=== PATIENT | female | born 1965 | race Caucasian/White ===

== ENCOUNTER 2022-03-30 17:32 | Inpatient (IN) ==
[2022-03-30] MEDS ORDERED: SODIUM CHLORIDE 0.9% 1000ML 1,000 ML IV ONE (17:42)
[2022-03-30] MEDS ORDERED: ONDANSETRON INJ 2 MG/ML 2 ML VIAL IV STA (17:43)
--- NOTE | 2022-03-30 17:46 | Emergency Department Note ---
Impression & Plan Pulmonary embolism, Hypoxia, Syncope ED Provider Note NAME: EMANUEL MCKENNA AGE: 56 SEX: F : 1965 ARRIVES VIA: Ambulance INFORMANT: Patient ED PROVIDER(S): Marc Peter DO CHIEF COMPLAINT: syncope HPI: Patient is a 57-year-old female with past medical history of ovarian cancer who is receiving chemo who received 5 days worth of chemo this past week. She has been sick since with nausea and vomiting. Today she felt very hot flushed nauseated and passed out. She did this while sitting. She was passed out for about 5 minutes. She woke up she was not confused. She knew where she was. There is no seizure activity. She denies any headache or change in v ision. No chest pain or shortness of breath preceding or following this incident. She does admit to upset stomach and persistent vomiting. No dysuria, urgency, or frequency. No other exacerbating or remitting factors. PAST MEDICAL HISTORY:See Below PAST SURGICAL HISTORY:See Below FAMILY HISTORY:See Below SOCIAL HISTORY:See Below HOME MEDICATIONS:See Below ALLERGIES:See Below VITALS:See Below PHYSICAL EXAMINATION: GENERAL: Sitting up in bed, alert, well appearing, well nourished, no distress, non-toxic EYE EXAM: normal conjunctiva. PERRL and EOM's grossly intact. OROPHARYNX: no exudate, no erythema, lips, buccal mucosa, and tongue normal and mucous membranes are moist NECK: supple, no nuchal rigidity, no adenopathy, non-tender LUNGS: Clear to auscultation. Normal chest wall mechanics HEART: tachycardia, S1 normal and S2 normal ABDOMEN: abdomen soft, non-tender, normo-active bowel sounds, no masses, no rebound or guarding. UPPER EXTREMITIES: upper extremities are grossly normal. LOWER EXTREMITIES: No pitting edema. Calves are equal bilateral NEURO EXAM: Normal sensorium, cranial nerves II-XII grossly intact, normal speech, no gross weakness of arms, no gross weakness of legs. MEDICAL DECISION MAKING: Patient is a 56-year-old female with ovarian cancer receiving chemo who presents the ER for syncopal episode. She was found to be hypoxic. She is placed on 2 L nasal cannula. She tachycardic with heart rate in 130s. IV was established blood work was obtained. Labs show no significant leukocytosis. Mild anemia 10. BMP was unremarkable. Glucose was slightly elevated. LFTs bilirubin was unremarkable. Troponin and lipase was normal. CT angio of the chest shows multiple bilateral PEs. Patient denies any bleeding risk factors. She was updated bedside. She was placed on a heparin drip and bolus. She will be admitted to the [facility] as I discussed with Dr. Landry in regards to presentation work-up and further treatment Triage Nursing notes reviewed. Limited review of prior medical records performed Vital Signs: reviewed and remarkable for no significant abnormalities Differential diagnosis: Differential diagnosis includes etiologies such as vasovagal event, infection, hypoglycemia, electrolyte abnormalities, cardiac sources, intracerebral event, toxicologic, neurologic, as well as others were entertained. ER treatment provided: See below Diagnostics interpreted by me include EKG and cardiac monitoring as listed below: -Cardiac Monitoring: An order was placed for continuous cardiac monitoring. The monitor shows a rate of 120 with sinus rhythm. -ECG: Sinus tachycardia rate of 114 Left axis No PVCs QTC 476 -Laboratory studies:Interpreted by me as stated above in MDM and shown below. Imaging studies: Xrays: As interpreted by me: Portable AP upright 1 view the chest unremarkable for any focal infiltrate per my CTs show: CT angio of the chest shows bilateral PEs per my read Consultation(s): Discussed with Dr. Landry in regards to presentation work-up and treatment Procedures:none Critical Care: I have personally spent 31 minutes of critical care time in the direct management of this patient. This includes bedside care, interpretation of diagnostic studies, and testing, discussion with consultants, patient, and family members, and other required patient management activities. This 31 minutes is in excess of all separately billable procedures. Past Med/Surg History Social History Smoking Status: Never smoker Feels Safe at Home: Yes Allergies Allergies Allergy/AdvReac Type Severity Reaction Status Date / Time No Known Allergies Allergy Mild Verified 03/30/22 20:32 Home Meds Home Medications Medication Instructions Recorded Confirmed levothyroxine 88 mcg tablet 88 mcg PO DAILYBB 03/30/22 03/30/22 olanzapine 5 mg tablet 10 mg PO QPM 03/30/22 03/30/22 omeprazole 20 mg capsule,delayed 20 mg PO QPM 03/30/22 03/30/22 release ondansetron HCl 8 mg tablet 8 mg PO Q8H PRN Nausea 02/04/23 02/04/23 Results & Data (ED) Vital Signs Vital Signs - 24 hr 03/30/22 17:21 03/30/22 18:14 03/30/22 18:18 Temperature 37.3 C Temperature Source Oral Pulse Rate 116 H Pulse Rate [Left Apical] 95 H Pulse Rhythm Regular Pulse Strength Normal Respiratory Rate 20 20 Respiratory Effort / Characteristics Non-Labored Spontaneous Non-Labored Spontaneous Respiratory Depth Normal Normal Blood Pressure [Left Arm] 107/64 Blood Pressure Mean [Left Arm] 78 Pulse Oximetry 90 89 L 89 L Oxygen Delivery Method Room Air Room Air Room Air Oxygen Flow Rate Sepsis Recent Fever Within 48 Hours No Sepsis New/Unexplained Change in Mental Status No Sepsis Action Taken by Nursing No Action Required Oxygen Flow Rate - Titration 2 Pulse Oximetry Post Tiitration 92 03/30/22 17:43 03/30/22 19:00 Temperature Temperature Source Pulse Rate Pulse Rate [Left Apical] 91 H Pulse Rhythm Pulse Strength Respiratory Rate 16 Respiratory Effort / Characteristics Respiratory Depth Blood Pressure [Left Arm] 123/67 Blood Pressure Mean [Left Arm] 85 Pulse Oximetry 92 95 Oxygen Delivery Method Nasal Cannula Nasal Cannula Oxygen Flow Rate 2 2 Sepsis Recent Fever Within 48 Hours Sepsis New/Unexplained Change in Mental Status Sepsis Action Taken by Nursing Oxygen Flow Rate - Titration Pulse Oximetry Post Tiitration Laboratory Data 03/30/22 18:00 03/30/22 18:00 Lab Results 03/30/22 03/30/22 03/30/22 Range/Units 17:39 18:00 18:00 WBC 8.01 (4.8-10.8) K/ul RBC 3.71 L (4.20-5.40) M/uL Hgb 10.5 L (12.0-16.0) g/dl Hct 31.1 L (37.0-47.0) % MCV 83.8 (80.0-100.0) fL MCH 28.3 (25.0-34.0) pg MCHC 33.8 (32.0-36.0) g/dL RDW Std Deviation 64.0 H (36.4-46.3) fL RDW Coeff of Madhav 20.9 H (11.5-14.5) % Plt Count 180 (130-400) K/uL MPV 9.7 (9.4-12.4) fL Immature Gran % (Auto) 1.0 % Neut % (Auto) 77.8 % Lymph % (Auto) 20.3 % Swisher % (Auto) 0.6 % Eos % (Auto) 0.2 % Baso % (Auto) 0.1 % Neut # (Auto) 6.22 (1.40-6.50) K/uL Lymph # (Auto) 1.63 (1.2-3.4) K/uL Swisher # (Auto) 0.05 L (0.11-0.59) K/uL Eos # (Auto) 0.02 (0-0.50) K/uL Baso # (Auto) 0.01 (0-0.2) K/uL Immature Gran # (Auto) 0.08 (0.01-0.20) K/uL Anisocytosis Present Tear Drop Cells 1+ Sodium 134 L (136-145) mmol/L Potassium 3.6 (3.5-5.1) mmol/L Chloride 99 (98-107) mmol/L Carbon Dioxide 22 (21-32) mmol/L Anion Gap 13 H (3-11) BUN 28 H (6-23) mg/dl Creatinine 1.29 H (0.6-1.2) mg/dl Est Cr Clr Drug Dosing 50.7 ml/min Est GFR ( Amer) 53.6 ml/min Est GFR (Non-Af Amer) 46.3 ml/min BUN/Creatinine Ratio 21.7 H (10-20) Glucose 161 H (70-99(Fasting)) mg/dl POC Glucose 182 H (70-99) mg/dl Calcium 9.0 (8.5-10.1) mg/dl Total Bilirubin 0.6 (0.2-1.0) mg/dl AST 12 L (13-39) U/L ALT 12 (7-52) U/L Alkaline Phosphatase 60 (34-104) U/L Troponin I High Sens 6.5 (0-14) pg/ml Total Protein 7.1 (6.0-8.3) gm/dl Albumin 4.0 (3.4-5.0) gm/dl Globulin 3.1 (2.5-4.0) gm/dl Albumin/Globulin Ratio 1.3 (0.9-2) Lipase 39 (11-82) U/L Administered Medications Discontinued Medications Sodium Chloride (Nss 1000ml) 1,000 mls @ 999 mls/hr IV .Q1H1M ONE Stop: 03/30/22 18:42 Last Infusion: 03/30/22 19:16 Dose: 0 mls/hr Documented By: Admin: 03/30/22 18:13 Dose: 999 mls/hr Documented By: MARY Ioversol (Optiray 320 500ml) 119 ml IV ONCE ONE Stop: 03/30/22 19:29 Last Admin: 03/30/22 19:31 Dose: 119 ml Documented By: JUANITO Ondansetron HCl (Ondansetron Inj 2 Mg/Ml 2 Ml Vial) 4 mg IV NOW STA Stop: 03/30/22 17:44 Last Admin: 03/30/22 18:13 Dose: 4 mg Documented By: MARY Imaging Data Radiologist's Impression: Abdomen/Pelvis CT 03/30/22 17:42 CT angio chest PE protocol, CT abd pelvis IV con only CT DOSE: 891.51 mGy.cm HISTORY: 56 years-old Female with PE. Acute shortness of breath. Acute chest and abdominal pain with syncope. History of ovarian carcinoma with chemotherapy. TECHNIQUE: Multiple CTA images of the chest were obtained after the intravenous administration of [address] abdomen and pelvis with IV contrast was also obtained. Coronal and sagittal MIPS were obtained from the axial data set and were submitted for review. All measurements were obtained according to NASCET criteria. A dose lowering technique was utilized adhering to the principles of ALARA. COMPARISON: PET CT 10/15/2021, CT abdomen and pelvis 05/30/2011. FINDINGS: CTA: Mild cardiomegaly without pericardial effusion. Unremarkable thoracic aorta. Main, lobar, segmental and subsegmental pulmonary bladder with bilateral lungs. Mild straightening of the intraventricular septum. CT CHEST: Heterogeneous thyroid. No pathologically enlarged lymph nodes. No pneumothorax, pleural effusion, airspace consolidation or overt pulmonary edema. No pulmonary infarction identified or suspicious pulmonary nodules. Central airways are patent. Unremarkable soft tissues. No acute fracture or destructive bone lesion identified. 1.5 asymmetry of the upper outer quadrant left breast which demonstrated no significant metabolic activity on the comparison exam. CT ABDOMEN/PELVIS: No pneumatosis or pneumoperitoneum. Unremarkable spleen, pancreas, and adrenal glands. Punctate gallstone within the gallbladder fundus. Probable cyst of the left hepatic lobe measures 8 mm on image 22 series 5. Ill-defined 1.5 cm focus of slightly decreased attenuation within the left hepatic lobe on image 14 series 5 similar to the 2012 study suggestive of benign etiology. Patency of the hepatic and portal veins. Unremarkable kidneys. No hydronephrosis. 6 cm probable cyst of the interpolar right kidney. Decompressed urinary bladder with wall thickening. Hysterectomy. Surgical clips of the retroperitoneum and pelvis. Excision of the previously described large midline pelvic mass. Decreased size of the previously noted peritoneal nodules. 1.7 cm omental nodule on image 238 previously measured 2.6 c m. Moderate colonic fecal retention. Colonic diverticulosis. Normal appendix. No evidence of new or progressive disease. Unremarkable soft tissues. No acute fracture. IMPRESSION: 1. Extensive pulmonary emboli with findings suggestive of right heart strain. 2. No pleural effusion or pulmonary infarct. 3. No acute intra-abdominal or intrapelvic abnormality. 4. The previously noted large midline pelvic mass is no longer present. Additionally, there is marked improvement of the previously noted peritoneal/omental carcinomatosis. 5. Incidental findings as above. ACT 112: Negative or not required by law. The above report was generated using voice recognition software. It may contain grammatical, syntax or spelling errors. Electronically signed by: Marky Lester M.D. 03/30/2022 8:14 PM Chest X-Ray 03/30/22 17:43 XR chest 1V portable HISTORY: 56 years-old Female Chest pain, nonspecific acute chest pain COMPARISON: Acute abdominal series radiographs 11/19/2005 TECHNIQUE: AP view of the chest FINDINGS: Right IJ port catheter distal tip projects over the right atrium. No pneumothorax, pleural effusion, airspace consolidation or overt pulmonary edema. Bones of the chest appear grossly intact. IMPRESSION: No acute process. ACT 112: Negative or not required by law. The above report was generated using voice recognition software. It may contain grammatical, syntax or spelling errors. Electronically signed by: Marky Lester M.D. 03/30/2022 6:43 PM Chest CTA 03/30/22 18:23 CT angio chest PE protocol, CT abd pelvis IV con only CT DOSE: 891.51 mGy.cm HISTORY: 56 years-old Female with PE. Acute shortness of breath. Acute chest and abdominal pain with syncope. History of ovarian carcinoma with chemotherapy. TECHNIQUE: Multiple CTA images of the chest were obtained after the intravenous administration of [address] abdomen and pelvis with IV contrast was also obtained. Coronal and sagittal MIPS were obtained from the axial data set and were submitted for review. All measurements were obtained according to NASCET criteria. A dose lowering technique was utilized adhering to the principles of ALARA. COMPARISON: PET CT 10/15/2021, CT abdomen and pelvis 05/30/2011. FINDINGS: CTA: Mild cardiomegaly without pericardial effusion. Unremarkable thoracic aorta. Main, lobar, segmental and subsegmental pulmonary bladder with bilateral lungs. Mild straightening of the intraventricular septum. CT CHEST: Heterogeneous thyroid. No pathologically enlarged lymph nodes. No pneumothorax, pleural effusion, airspace consolidation or overt pulmonary edema. No pulmonary infarction identified or suspicious pulmonary nodules. Central airways are patent. Unremarkable soft tissues. No acute fracture or destructive bone lesion identified. 1.5 asymmetry of the upper outer quadrant left breast which dem onstrated no significant metabolic activity on the comparison exam. CT ABDOMEN/PELVIS: No pneumatosis or pneumoperitoneum. Unremarkable spleen, pancreas, and adrenal glands. Punctate gallstone within the gallbladder fundus. Probable cyst of the left hepatic lobe measures 8 mm on image 22 series 5. Ill-defined 1.5 cm focus of slightly decreased attenuation within the left hepatic lobe on image 14 series 5 similar to the 2012 study suggestive of benign etiology. Patency of the hepatic and portal veins. Unremarkable kidneys. No hydronephrosis. 6 cm probable cyst of the interpolar right kidney. Decompressed urinary bladder with wall thickening. Hysterectomy. Surgical clips of the retroperitoneum and pelvis. Excision of the previously described large midline pelvic mass. Decreased size of the previously noted peritoneal nodules. 1.7 cm omental nodule on image 238 previously measured 2.6 cm. Moderate colonic fecal retention. Colonic diverticulosis. Normal appendix. No evidence of new or progressive disease. Unremarkable soft tissues. No acute fracture. IMPRESSION: 1. Extensive pulmonary emboli with findings suggestive of right heart strain. 2. No pleural effusion or pulmonary infarct. 3. No acute intra-abdominal or intrapelvic abnormality. 4. The previously noted large midline pelvic mass is no longer present. Additionally, there is marked improvement of the previously noted peritoneal/omental carcinomatosis. 5. Incidental findings as above. ACT 112: Negative or not required by law. The above report was generated using voice recognition software. It may contain grammatical, syntax or spelling errors. Electronically signed by: Marky Lester M.D. 03/30/2022 8:14 PM Discharge Plan Visit Data Chief Complaint: Syncope Stated Complaint: SYNCOPE, DIZZINESS ED Provider: Marc Peter Discharge Problem: Pulmonary embolism, Hypoxia, Syncope Forms Stand Alone Forms: [facility] Prescriptions Prescriptions: No Action ondansetron HCl 8 mg tablet 8 mg PO Q8H PRN (Reason: Nausea) olanzapine 5 mg tablet 10 mg PO QPM omeprazole 20 mg capsule,delayed release(DR/EC) 20 mg PO QPM levothyroxine 88 mcg tablet 88 mcg PO DAILYBB Referrals Referrals: PCP,NO [Physician] -
[2022-03-30 18:37] LABS: Albumin Globulin Ratio 1.3 (0.9-2); BUN Creatinine Ratio 21.7 (10-20); Bilirubin,Total 0.6 mg/dl (0.2-1.0); Creatinine Clr Calc Pharmacy 50.7 ml/min; Est GFR (African American) 53.6 ml/min; Est GFR (Non-African American) 46.3 ml/min; Globulin 3.1 gm/dl (2.5-4.0); Potassium 3.6 mmol/L (3.5-5.1); Total Protein 7.1 gm/dl (6.0-8.3)
[2022-03-30 18:43] LABS: Hematocrit (blood only) 31.1 % (37.0-47.0); Hemoglobin 10.5 g/dl (12.0-16.0); Mean Corpuscular Hemoglobin 28.3 pg (25.0-34.0); Mean Corpuscular Hgb Conc 33.8 g/dL (32.0-36.0); Mean Corpuscular Volume 83.8 fL (80.0-100.0); Mean Platelet Volume 9.7 fL (9.4-12.4); Platelet Count 180 K/uL (130-400); RDW Coefficient of Variation 20.9 % (11.5-14.5); Red Blood Count 3.71 M/uL (4.20-5.40); Troponin I High Sensitivity 6.5 pg/ml (0-14); White Blood Count 8.01 K/ul (4.8-10.8)
--- NOTE | 2022-03-30 18:45 | XRay Report ---
XR chest 1V portable HISTORY: 56 years-old Female Chest pain, nonspecific acute chest pain COMPARISON: Acute abdominal series radiographs 11/19/2005 TECHNIQUE: AP view of the chest FINDINGS: Right IJ port catheter distal tip projects over the right atrium. No pneumothorax, pleural effusion, airspace consolidation or overt pulmonary edema. Bones of the chest appear grossly intact. IMPRESSION: No acute process. ACT 112: Negative or not required by law. The above report was generated using voice recognition software. It may contain grammatical, syntax o r spelling errors. Electronically signed by: Marky Lester M.D. 03/30/2022 6:43 PM
[2022-03-30] MEDS ORDERED: OPTIRAY 320 500ml IV ONE (19:28)
[2022-03-30 19:49] LABS: Anisocytosis Present; Basophils # (auto) 0.01 K/uL (0-0.2); Basophils % (auto) 0.1 %; Eosinophils # (auto) 0.02 K/uL (0-0.50); Eosinophils % (auto) 0.2 %; Immature Granulocytes # (auto) 0.08 K/uL (0.01-0.20); Lymphocytes # (auto) 1.63 K/uL (1.2-3.4); Lymphocytes % (auto) 20.3 %; Monocytes # (auto) 0.05 K/uL (0.11-0.59); Monocytes % (auto) 0.6 %; Neutrophils # (auto) 6.22 K/uL (1.40-6.50); Neutrophils % (auto) 77.8 %; Tear Drop Cells 1+
[2022-03-30] MEDS ORDERED: Heparin IV Adult Wt-Based Standard WITH Bolus Protocol IV STA (20:09)
--- NOTE | 2022-03-30 20:17 | CT Scan Report ---
CT angio chest PE protocol, CT abd pelvis IV con only CT DOSE: 891.51 mGy.cm HISTORY: 56 years-old Female with PE. Acute shortness of breath. Acute chest and abdominal pain wit h syncope. History of ovarian carcinoma with chemotherapy. TECHNIQUE: Multiple CTA images of the chest were obtained after the intravenous administration of [address] abdomen and pelvis with IV contrast was also obtained. Coronal and sagittal MIPS wer e obtained from the axial data set and were submitted for review. All measurements were obtained acc ording to NASCET criteria. A dose lowering technique was utilized adhering to the principles of ALARA . COMPARISON: PET CT 10/15/2021, CT abdomen and pelvis 05/30/2011. FINDINGS: CTA: Mild cardiomegaly without pericardial effusion. Unremarkable thoracic aorta. Main, lobar, segmental a nd subsegmental pulmonary bladder with bilateral lungs. Mild straightening of the intraventricular se ptum. CT CHEST: Heterogeneous thyroid. No pathologically enlarged lymph nodes. No pneumothorax, pleural effusion, air space consolidation or overt pulmonary edema. No pulmonary infarction identified or suspicious pulmon rod nodules. Central airways are patent. Unremarkable soft tissues. No acute fracture or destructive bone lesion identified. 1.5 asymmetry of the upper outer quadrant left breast which demonstrated no s ignificant metabolic activity on the comparison exam. CT ABDOMEN/PELVIS: No pneumatosis or pneumoperitoneum. Unremarkable spleen, pancreas, and adrenal glands. Punctate galls tone within the gallbladder fundus. Probable cyst of the left hepatic lobe measures 8 mm on image 22 series 5. Ill-defined 1.5 cm focus of slightly decreased attenuation within the left hepatic lobe on image 14 series 5 similar to the 2012 study suggestive of benign etiology. Patency of the hepatic and portal veins. Unremarkable kidneys. No hydronephrosis. 6 cm probable cyst of the interpolar right kidney. Decompres sed urinary bladder with wall thickening. Hysterectomy. Surgical clips of the retroperitoneum and pel vis. Excision of the previously described large midline pelvic mass. Decreased size of the previously noted peritoneal nodules. 1.7 cm omental nodule on image 238 previously measured 2.6 cm. Moderate co lonic fecal retention. Colonic diverticulosis. Normal appendix. No evidence of new or progressive dis ease. Unremarkable soft tissues. No acute fracture. IMPRESSION: 1. Extensive pulmonary emboli with findings suggestive of right heart strain. 2. No pleural effusion or pulmonary infarct. 3. No acute intra-abdominal or intrapelvic abnormality. 4. The previously noted large midline pelvic mass is no longer present. Additionally, there is marked improvement of the previously noted peritoneal/omental carcinomatosis. 5. Incidental findings as above. ACT 112: Negative or not required by law. The above report was generated using voice recognition software. It may contain grammatical, syntax o r spelling errors. Electronically signed by: Marky Lesetr M.D. 03/30/2022 8:14 PM
[2022-03-30] MEDS ORDERED: HEPARIN SOD (PORCINE) 1000 UNIT/ML IV ONE (20:24)
[2022-03-30 20:58] LABS: INR 1.1 (0.9-1.1); Partial Thromboplastin Ratio 0.8; Partial Thromboplastin Time 20.8 Seconds (21.0-31.0); Prothrombin Time 11.2 Seconds (9.0-12.0)
[2022-03-30] MEDS: HEPARIN SODIUM/DEXTROSE 25,000 UNITS/500 ML BAG IV SCH (20:58)
[2022-03-30] MEDS ORDERED: ACETAMINOPHEN 325 MG TAB PO PRN (22:28)
[2022-03-30] MEDS ORDERED: SODIUM CHLORIDE 0.9% 1000ML 1,000 ML IV SCH (22:28)
[2022-03-30] MEDS ORDERED: NITROGLYCERIN SL 0.4 MG/TAB TAB SL PRN (22:28)
[2022-03-30] MEDS ORDERED: SENNA 8.6 MG TAB PO PRN (22:28)
[2022-03-30] MEDS ORDERED: ONDANSETRON INJ 2 MG/ML 2 ML VIAL IV PRN (22:28)
[2022-03-30] MEDS: PROCHLORPERAZINE MALEATE 10 MG TAB PO PRN (23:12)
--- NOTE | 2022-03-31 00:20 | History and Physical Report ---
DATE OF ADMISSION: 03/30/2022. CHIEF COMPLAINT: Syncope. 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 The patient says she has two more cycles to go weekly on Mondays, presents with a syncopal episode. The patient was sitting around 4:00 to 4:30 p.m. at the dinner table, she just leaned forward and passed out as per family for a few minutes, and when she woke up, she was confused for a few minutes.. As per the patient, she does not remember what happened. No seizure like activity. Her imaging studies, CTA chest showed extensive pulmonary emboli with findings of history of right heart strain and she was started on heparin in ER. She is currently resting comfortably, hemodynamically stable. She has nausea from her cancer chemotherapy and her appetite is not that great. No difficulty swallowing. She felt dizzy before she passed out. No headache, no blurred visions, no earache, no runny nose. She has some dry cough. No chest pain, no shortness of breath, no abdominal pain. Normal bowel and bladder movements. Denies any blood in stool or black stools. Denies any hematuria, no swelling in the legs. Otherwise, she is ambulating okay. ALLERGIES: No known drug allergies. PAST MEDICAL HISTORY: As mentioned above. PAST SURGICAL HISTORY: Colonoscopy, EGD, exploratory laparotomy, excision of abdominal tumor, total hysterectomy. MEDICATIONS: The patient is on levothyroxine 88 mcg p.o. daily, olanzapine 10 mg p.o. q.p.m., omeprazole 20 mg p.o. q.p.m., Zofran 8 mg p.o. q. 8 hours p.r.n., prochlorperazine 10 mg p.o. q. 6 hours p.r.n., Senokot 8.6 mg p.o. a.m. p.r.n. FAMILY HISTORY: Significant for mother has breast cancer, diabetes, hypertension, thyroid disorder; father has emphysema. SOCIAL HISTORY: Quit smoking in 2019, smoked quarter pack a day for 30 years. Alcohol occasional. No drug use. REVIEW OF SYSTEMS: As per HPI. Rest of review of systems is negative. PHYSICAL EXAMINATION: GENERAL: The patient is of moderate build, not in acute distress. VITAL SIGNS: Temperature 37.3, pulse 97, respiratory rate 16, blood pressure 121/66, oxygen 95% on 2 liters. She was 89% on room air. HEENT: Pupils equal, round, and reactive to light. Oral mucosa moist. NECK: No JVD, no neck masses. CARDIOVASCULAR: S1 and S2 heard. Mild tachycardia. No murmurs. RESPIRATORY SYSTEM: Normal AP diameter. No accessory muscle use. No wheezing, no crackles. ABDOMEN: Soft, bowel sounds present, nontender, no distention. CENTRAL NERVOUS SYSTEM: Alert and oriented. Speech is clear. No facial droop. Obeys simple commands. Moves extremities. EXTREMITIES: No edema, no erythema, no calf tenderness. LABORATORY DATA: WBC 8.01, hemoglobin 10.5, hematocrit 31.1, platelets 180. PT 11.2, INR 1.1, APTT 20.8. Sodium 134, potassium 3.6, chloride 99, bicarbonate 22, BUN 28, creatinine 1.29, serum glucose 161, calcium 9, total bilirubin 0.6, AST 12, ALT 12, alkaline phosphatase 60. Troponin I high sensitivity 6.5, Lipase 39. SARS-CoV-2 rapid test negative. IMAGING DATA: CTA chest, extensive pulmonary emboli with findings suggestive of right heart strain. Chest x-ray, no acute process. CT abdomen and pelvis with IV contrast, no acute intraabdominal or intrapelvic abnormality, previously noted large midline pelvic mass is no longer present. Additionally, there is marked improvement of the previously noted peritoneal omental carcinomatosis. EKG: Sinus tachycardia at a rate of 114. No previous EKG available. ASSESSMENT AND PLAN: This is a 56-year-old female who presents with syncope and found to have extensive pulmonary emboli with right heart strain. 1. Pulmonary emboli with right heart strain, history of ovarian cancer, on chemotherapy: Started on IV heparin drip, which will be continued. Will follow the echocardiogram and will follow lower extremity Doppler. Monitor in the tele for syncope, probably from the above, from right heart strain. Follow serial cardiac enzymes and consult cardiology in the a.m. Will keep n.p.o. until seen by cardiology. 2. History of ovarian cancer: Currently getting chemo. Follow up with hem/onc. 3. Hypothyroidism: Continue Synthroid. 4. Deep venous thrombosis prophylaxis: On IV heparin. DISPOSITION: Closely monitor in the tele floor. Level 1 full code. Expect to discharge home and follow with family doctor. Job ID: [id number] [facility]
[2022-03-31 03:25] LABS: Basophils # (auto) 0.02 K/uL (0-0.2); Basophils % (auto) 0.3 %; Eosinophils # (auto) 0.02 K/uL (0-0.50); Eosinophils % (auto) 0.3 %; Hematocrit (blood only) 26.2 % (37.0-47.0); Immature Granulocytes # (auto) 0.05 K/uL (0.01-0.20); Immature Granulocytes % (auto) 0.8 %; Lymphocytes # (auto) 1.11 K/uL (1.2-3.4); Lymphocytes % (auto) 17.8 %; Mean Corpuscular Hemoglobin 28.6 pg (25.0-34.0); Mean Corpuscular Hgb Conc 34.4 g/dL (32.0-36.0); Mean Corpuscular Volume 83.2 fL (80.0-100.0); Mean Platelet Volume 9.2 fL (9.4-12.4); Monocytes # (auto) 0.05 K/uL (0.11-0.59); Monocytes % (auto) 0.8 %; Neutrophils # (auto) 4.98 K/uL (1.40-6.50); Platelet Count 116 K/uL (130-400); RDW Coefficient of Variation 21.2 % (11.5-14.5); RDW Standard Deviation 64.4 fL (36.4-46.3); Red Blood Count 3.15 M/uL (4.20-5.40); White Blood Count 6.23 K/ul (4.8-10.8)
[2022-03-31 03:45] LABS: BUN Creatinine Ratio 26.1 (10-20); Calcium 8.2 mg/dl (8.5-10.1); Creatinine Clr Calc Pharmacy 60.9 ml/min; Est GFR (African American) 64.3 ml/min; Est GFR (Non-African American) 55.5 ml/min; Magnesium 1.6 mg/dl (1.7-2.4); Potassium 4.1 mmol/L (3.5-5.1)
[2022-03-31 03:50] LABS: Partial Thromboplastin Ratio 1.7
[2022-03-31 03:55] LABS: Partial Thromboplastin Time 46.8 Seconds (21.0-31.0)
[2022-03-31 04:11] LABS: Hypersegmented Neutrophils 1+; Ovalocytes 1+; Polychromasia 1+; Tear Drop Cells 1+
[2022-03-31] MEDS: LEVOTHYROXINE SODIUM 88 MCG TABLET PO SCH (05:35)
[2022-03-31] MEDS: MAGNESIUM SULFATE / D5W 1 GM/100 ML BAG IV SCH ×2 (08:43→11:02)
[2022-03-31] MEDS: PROCHLORPERAZINE MALEATE 10 MG TAB PO PRN ×2 (08:43→20:31)
--- NOTE | 2022-03-31 09:33 | Hospitalist Progress Note ---
Date of Service March 31, 2022 Assessment & Plan (1) Pulmonary embolism: Plan: -CTA chest shows extensive pulmonary emboli and findings suggestive of RV strain, no pulmonary infarct -TTE this morning negative for RV strain (per my discussion with Cardiology), final report pending -LE ultrasound pending -can hold off on cardiology consult for now -continue heparin drip, can likely transition to NOAC tomorrow. Patient sees Dr Montgomery for her ovarian cancer, she can follow up with Dr Montgomery to decide whether her AC course needs to be extended beyond 3-6 months (2) Hypoxia: Plan: -weaned to room air this morning (3) Syncope: Plan: -Likely related to the underlying PE Plan Ovarian Cancer -OP follow up with Dr Montgomery, recently had chemotherapy. No neutropenia currently DVT ppx Already on heparin drip Admission and Anticipated Discharge Date Admission Date: March 30, 2022 Subjective Feels well overall Denies chest pain or shortness of breath Weaned to room air overnight Physical Exam Physical Exam: Appears well, no acute distress Respiratory: No wheezing/rhonchi/rales Cardiovascular: Regular rate and rhythm, no murmurs/rubs/gallops Gastrointestinal (Abdomen): soft, non tender Musculoskeletal: No edema, no cyanosis Neurologic: awake, alert, spontaneously moving extremities Results & Data Results & Data ([facility]) Vital Signs (Past 12 Hours) Vital Signs Temp Pulse Pulse Resp BP Pulse Ox O2 Del Method 03/31/22 08:48 94 Room Air 03/31/22 07:08 36.6 C 86 16 108/71 97 Nasal Cannula 03/31/22 06:21 12 98 Nasal Cannula 03/31/22 03:31 36.8 C 85 18 105/63 96 Nasal Cannula 03/31/22 00:56 107 H 03/30/22 22:44 Nasal Cannula 03/30/22 23:14 36.7 C 90 18 112/72 97 Nasal Cannula 03/30/22 22:44 36.6 C 107 H 17 131/89 96 Nasal Cannula 03/30/22 22:03 99 H 19 124/78 96 Nasal Cannula O2 Flow Rate 03/31/22 08:48 03/31/22 07:08 2 03/31/22 06:21 2 03/31/22 03:31 03/31/22 00:56 03/30/22 22:44 4 03/30/22 23:14 03/30/22 22:44 4 03/30/22 22:03 4
--- NOTE | 2022-03-31 10:39 | Electrocardiogram Report ---
Test Reason : Blood Pressure : / mmHG Vent. Rate : 114 BPM Atrial Rate : 114 BPM P-R Int : 152 ms QRS Dur : 088 ms QT Int : 346 ms P-R-T Axes : 032 -17 024 degrees QTc Int : 476 ms Sinus tachycardia Moderate voltage criteria for LVH, may be normal variant Borderline ECG No previous ECGs available Confirmed by Carroll Mukherjee ([id number]) on 03/31/2022 10:38:55 AM Referred By: REFERRED SELF Confirmed By:Carroll Mukherjee
--- NOTE | 2022-03-31 10:47 | Ultrasound Report ---
ULTRASOUND BILATERAL LOWER EXTREMITY VENOUS CLINICAL HISTORY: Pulmonary embolus. COMPARISON STUDY: No priors. TECHNIQUE: Real-time, grayscale, and color Doppler sonography of the deep veins of the right and left lower extremity was performed from the inguinal crease to the calf. Compression and augmentation wer e utilized. FINDINGS: There is no sonographic evidence of deep venous thrombosis identified in the right or left lower extremity. The common femoral, superficial femoral, and popliteal veins are patent and normally compressible bilaterally. The greater saphenous vein and the profunda femoris vein at the junction w ith the common femoral vein are clear in both legs. The visualized calf veins are patent bilaterally. IMPRESSION: There is no sonographic evidence of deep venous thrombosis identified in the right or lef t lower extremity. ACT 112: Negative or not required by law. Electronically signed by: Donovan Mcneill M.D. 03/31/2022 10:45 AM
[2022-03-31] MEDS: HEPARIN SODIUM/DEXTROSE 25,000 UNITS/500 ML BAG IV SCH (17:16)
[2022-03-31] MEDS ORDERED: PANTOprazole 40 MG TAB PO SCH (21:00)
[2022-03-31] MEDS ORDERED: OLANZapine 10 MG TAB PO SCH (21:00)
[2022-04-01] MEDS: LEVOTHYROXINE SODIUM 88 MCG TABLET PO SCH (05:42)
[2022-04-01] MEDS: PROCHLORPERAZINE MALEATE 10 MG TAB PO PRN (05:42)
[2022-04-01 06:21] LABS: Basophils # (auto) 0.01 K/uL (0-0.2); Basophils % (auto) 0.2 %; Eosinophils # (auto) 0.01 K/uL (0-0.50); Eosinophils % (auto) 0.2 %; Hematocrit (blood only) 27.7 % (37.0-47.0); Hemoglobin 9.5 g/dl (12.0-16.0); Immature Granulocytes # (auto) 0.07 K/uL (0.01-0.20); Immature Granulocytes % (auto) 1.6 %; Lymphocytes % (auto) 27.8 %; Mean Corpuscular Hemoglobin 28.7 pg (25.0-34.0); Mean Corpuscular Hgb Conc 34.3 g/dL (32.0-36.0); Mean Corpuscular Volume 83.7 fL (80.0-100.0); Mean Platelet Volume 10.3 fL (9.4-12.4); Monocytes # (auto) 0.02 K/uL (0.11-0.59); Monocytes % (auto) 0.5 %; Neutrophils % (auto) 69.7 %; Platelet Count 112 K/uL (130-400); RDW Coefficient of Variation 20.5 % (11.5-14.5); RDW Standard Deviation 63.6 fL (36.4-46.3); Red Blood Count 3.31 M/uL (4.20-5.40); White Blood Count 4.31 K/ul (4.8-10.8)
[2022-04-01 06:40] LABS: Partial Thromboplastin Ratio 1.6
[2022-04-01 06:41] LABS: BUN Creatinine Ratio 21.5 (10-20); Calcium 9.2 mg/dl (8.5-10.1); Creatinine Clr Calc Pharmacy 63.1 ml/min; Est GFR (African American) 67.2 ml/min; Magnesium 2.2 mg/dl (1.7-2.4); Potassium 3.6 mmol/L (3.5-5.1)
[2022-04-01 06:59] LABS: Anisocytosis Present; Hypersegmented Neutrophils 1+
[2022-04-01 12:52] LABS: Partial Thromboplastin Ratio 1.4; Partial Thromboplastin Time 38.6 Seconds (21.0-31.0)
[2022-04-01] MEDS ORDERED: RIVAROXABAN 15 MG TAB PO SCH (13:00)
[2022-04-01 13:26] LABS: Appearance Urine Cloudy (Clear); Bacteria Urine Automated 1+ (Negative); Bilirubin Urine Negative (Negative); Blood Urine Trace (Negative); Color Urine Yellow; Epithelial Cell Urine Auto >30 /lpf (0-5); Glucose Urine UA Negative (Negative); Ketones Urine Negative (Negative); Leukocyte Esterase Urine 3+ (Negative); Nitrite Urine Negative (Negative); Protein Urine Trace (Negative); RBC Urine Automated 0-4 /hpf (0-4); Specific Gravity Urine 1.013 (1.000-1.030); Urobilinogen Urine Negative (Negative); WBC Urine Automated >30 /hpf (0-5); pH Urine 5.5 (4.5-7.5)
--- NOTE | 2022-04-02 21:09 | Discharge Summary ---
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 The patient says she has two more cycles to go weekly on Mondays, presents with a syncopal episode. The patient was sitting around 4:00 to 4:30 p.m. at the dinner table, she just leaned forward and passed out as per family for a few minutes, and when she woke up, she was confused for a few minutes.. As per the patient, she does not remember what happened. No seizure like activity. Her imaging studies, CTA chest showed extensive pulmonary emboli with findings of history of right heart strain and she was started on heparin in ER. She is currently resting comfortably, hemodynamically stable. She has nausea from her cancer chemotherapy and her appetite is not that great. No difficulty swallowing. She felt dizzy before she passed out. No headache, no blurred visions, no earache, no runny nose. She has some dry cough. No chest pain, no shortness of breath, no abdominal pain. Normal bowel and bladder movements. Denies any blood in stool or black stools. Denies any hematuria, no swelling in the legs. Otherwise, she is ambulating okay. Principal Diagnosis Segmental and Subsegmental PE Acute hypoxic respiratory failure Discharge Exam Patient was seen and examined on day of discharge. She feels well. Was weaned off oxygen (95-96% on room air at rest and after ambulation) Discharge Data Allergies Allergy/AdvReac Type Severity Reaction Status Date / Time No Known Allergies Allergy Mild Verified 03/30/22 20:32 Consultations 03/30/22 20:09 ED Decision to Admit Stat Ordered Studies 03/30/22 17:42 CT Abd and Pelvis [CT abd pelvis IV con only] Stat 03/30/22 18:23 CT angio chest PE protocol Stat 03/31/22 22:28 US venous doppler LE BI Routine Hospital Course (1) Pulmonary embolism: -CTA chest shows extensive pulmonary emboli and findings suggestive of RV strain, no pulmonary infarct -TTE was negative for RV strain -LE ultrasound negative for DVT -Patient was placed on a heparin drip and transitioned to Xarelto at discharge. Patient sees Dr Montgomery for her ovarian cancer, she can follow up with Dr Montgomery to decide whether her AC course needs to be extended beyond the 3-6 months (2) Hypoxia: Acute hypoxic respiratory failure -89% on RA on presentation and required up to 4L NC while here -Weaned to room air prior to discharge (95-96% on RA at rest and after ambulation) (3) Syncope: -Likely related to the underlying PE Plan Ovarian Cancer -OP follow up with Dr Montgomery, recently had chemotherapy. No neutropenia currently Total Time Total Time Spent Total Time Spent (In Minutes): 35 Discharge Plan Discharge Items Patient Disposition: Home - Self-Care Reason For Visit: SYNCOPE Discharge Diagnosis: Segmental and Subsegmental PE Acute hypoxic respiratory failure Condition on Discharge: Good Activity: Resume your previous activity Non-emergency contact: Primary Care Provider and Oncologist Call non-emergency contact if: you have any medication questions and your symptoms worsen Follow-up/Referrals: Karissa Iglesias DO [Primary Care Provider] - (Date & Time 04/08/2022 1:20 PM Provider Karissa Iglesias DO Department [facility] ) Diet: Regular Addtl Attending Provider Instructions: You were admitted after losing consciousness. You were found to have a blood clot in your lung and required oxygen You were placed on heparin infusion while in the hospital and did well on this medicine. Your oxygen level was normal at the time of discharge You will go home on Xarelto 15mg twice a day for 21 days. Then Xarelto 20mg daily for at least 3 months. Please follow up with your Oncologist to decide whether your Xarelto should be extended beyond 3 month treatment course. Please monitor your stools while on Xarelto--Watch for black/tarry stools or bloody stools If you have nausea/vomiting/light headedness/chest pain/shortness of breath or new symptoms--> please return to the ER Pending Studies at Discharge: No Stand-Alone Forms: [employer], Smoking Cessation Medications and DC Order Prescriptions: New Xarelto 15 mg tablet 15 mg PO BID 21 Days Qty: 42 0RF Rx Instructions: must administer with a meal/food Xarelto 20 mg tablet 20 mg PO DAILY Qty: 60 0RF Rx Instructions: must administer with evening meal. Start after the 21 day loading dose is complete Continued ondansetron HCl 8 mg tablet 8 mg PO Q8H PRN (Reason: Nausea) olanzapine 5 mg tablet 10 mg PO QPM omeprazole 20 mg capsule,delayed release(DR/EC) 20 mg PO QPM levothyroxine 88 mcg tablet 88 mcg PO DAILYBB prochlorperazine maleate 10 mg tablet 10 mg PO Q6H PRN (Reason: Nausea) sennosides [Vegetable Laxative] 8.6 mg tablet 8.6 mg PO QAM PRN (Reason: Constipation) bleomycin 15 unit Recon Soln 0 unit IV .UD Rx Instructions: 03/30/22 : EVERY FRIDAY X 2, DIRECTED BY [facility] Discharge Orders: Discharge Order (Routine); Ordered 04/01/22 Ordered By: Dinesh Haro/Other Patient Handouts: Pulmonary Embolism Dc Admission Data Admit Date/Time: 03/30/22 21:32 Attending Provider: Dinesh Waldrop Admit Provider: Chito Hollingsworth Primary Care Provider: Karissa Iglesias Other Providers: Roselyn Montgomery Rajendra P. Other Interventions: Discharge Summary Assessment (RN) Last Done: 04/01/22 13:27
== END 2022-04-01 14:14 | disposition home or self-care (01) | DRG 175 ==
LOC: ED 17:32 → 2S 21:32

== ENCOUNTER 2022-04-08 09:20 | Inpatient (IN) ==
[2022-04-08] MEDS ORDERED: SODIUM CHLORIDE 0.9% 1000ML 1,000 ML IV ONE (09:43)
[2022-04-08 10:48] LABS: Albumin Globulin Ratio 1.1 (0.9-2); Albumin Level 3.6 gm/dl (3.4-5.0); BUN Creatinine Ratio 15.3 (10-20); Bilirubin,Total 0.4 mg/dl (0.2-1.0); Calcium 8.8 mg/dl (8.5-10.1); Est GFR (African American) 59.7 ml/min; Est GFR (Non-African American) 51.5 ml/min; Globulin 3.2 gm/dl (2.5-4.0); Magnesium 1.3 mg/dl (1.7-2.4); Phosphorus 2.7 mg/dl (2.5-4.9); Total Protein 6.8 gm/dl (6.0-8.3)
[2022-04-08 10:52] LABS: INR 1.4 (0.9-1.1); Prothrombin Time 14.2 Seconds (9.0-12.0)
[2022-04-08 10:54] LABS: Troponin I High Sensitivity 6.2 pg/ml (0-14)
[2022-04-08 11:03] LABS: Eosinophils # (auto) 0.01 K/uL (0-0.50); Eosinophils % (auto) 1.7 %; Hematocrit (blood only) 17.8 % (37.0-47.0); Hemoglobin 6.2 g/dl (12.0-16.0); Lymphocytes % (auto) 84.7 %; Mean Corpuscular Hemoglobin 28.2 pg (25.0-34.0); Mean Corpuscular Hgb Conc 34.8 g/dL (32.0-36.0); Mean Corpuscular Volume 80.9 fL (80.0-100.0); Mean Platelet Volume 10.3 fL (9.4-12.4); Monocytes # (auto) 0.07 K/uL (0.11-0.59); Monocytes % (auto) 11.9 %; Neutrophils # (auto) 0.01 K/uL (1.40-6.50); Neutrophils % (auto) 1.7 %; Platelet Count 7 K/uL (130-400); RDW Coefficient of Variation 17.1 % (11.5-14.5); RDW Standard Deviation 49.6 fL (36.4-46.3); White Blood Count 0.59 K/ul (4.8-10.8)
[2022-04-08] MEDS ORDERED: SODIUM CHLORIDE 0.9% 250 ML IV PRN ×2 (11:04→16:25)
[2022-04-08] MEDS: MAGNESIUM SULFATE / D5W 1 GM/100 ML BAG IV SCH ×2 (11:30→13:29)
--- NOTE | 2022-04-08 12:10 | Emergency Department Note ---
Impression & Plan Pancytopenia, Thrombocytopenia, Hypomagnesemia, Pulmonary embolism, Ovarian cancer ED Provider Note NAME: EMANUEL MCKENNA AGE: 56 SEX: F ARRIVES VIA: Walk-In INFORMANT: Patient ED PROVIDER(S): Austin Wells MD CHIEF COMPLAINT: Low blood counts, referred. PLAN: Disposition: Admit MEDICAL DECISION MAKING: The patient is a pleasant 56-year-old woman with a past medical history of ovarian cancer undergoing chemotherapy with last treatment approximately 2 weeks ago who presents to the emergency department via walk-in referred from her oncology office for pancytopenia with platelets down to 12K and hemoglobin 7.1 and neutropenia with WBCs of 0.99 and ANC of 0.01. The patient presents in the setting of recent admission to this facility on 03/30 where she was diagnosed with pulmonary embolism and treatment was initiated with IV heparin with subsequent transition to Xarelto. Patient denies any symptoms of bleeding. She feels some weakness but denies lightheadedness or chest pain/sob. She reports having some mild nasal congestion which only began last night after having a sneezing fit. She reports her stools appeared maroon-like in color today but admits she had beets for dinner last night. On arrival the patient is fatigued appearing but no acute distress, afebrile heart in the 140s which improved to the 90s and vital signs otherwise stable with O2 saturation 96% on room air. EKG without overt acute ischemia. Lab work performed and shows further worsening of pancytopenia with WBC of 0.5 and ANC of 0.01. H/H is down to 6.2/17.8 and platelets are 7K. Chemistry without metabolic acidosis. Magnesium 1.3 with repletion initiated. LFTs unre markable. High-sensitivity troponin 6.2, within normal limits. TSH within normal limits. Patient was consented for transfusion of blood products and ordered for 2 units of PRBCs as well as 2 units of platelets given the need to continue treatment with anticoagulation for her recently diagnosed PEs. Akash Bullock PAC, with Dr. Gia Bustos hospitalist who will evaluate the patient for admission. Triage Nursing notes reviewed and agree them. Prior/outside medical records reviewed Vital Signs: reviewed Differential diagnosis: Infection, dehydration, metabolic abnormality, hypo/hyperglycemia, electrolyte disturbance, anemia, hypoxia, cardiac sources, intracerebral event, toxicologic, neurologic, as well as other pathologies. ER treatment provided: See below. Diagnostics interpreted by me: ECG: Sinus tachycardia, 115 bpm, no ectopy, LVH, no overt ST elevation or depression, QTc 439, QRS 90. Cardiac Monitoring: An order for continuous cardiac monitoring was placed and demonstrated Sinus tachycardia, 115 bpm, no ectopy. Laboratory studies: See below Imaging studies: See below Consultation(s): Akash Bullock PAC, with Dr. Gia Bustos hospitalist HPI: The patient is a pleasant 56-year-old woman with a past medical history of ovarian cancer undergoing chemotherapy with last treatment approximately 2 weeks ago who presents to the emergency department via walk-in referred from her oncology office for pancytopenia with platelets down to 12K and hemoglobin 7.1 and neutropenia with WBCs of 0.99 and ANC of 0.01. The patient presents in the setting of recent admission to this facility on 03/30 where she was diagnosed with pulmonary embolism and treatment was initiated with IV heparin with subsequent transition to Xarelto. Patient denies any symptoms of bleeding. She feels some weakness but denies lightheadedness or chest pain/sob. She reports having some mild nasal congestion which only began last night after having a sneezing fit. She reports her stools appeared maroon-like in color today but admits she had beets for dinner last night. ROS: See above HPI for pertinent positives & negatives. A total of 10 systems reviewed and were otherwise negative. VITALS:See Below PHYSICAL EXAMINATION: GENERAL: Awake, alert, fatigued-appearing, in no distress HENT: Normocephalic, atraumatic. Boggy nasal turbinates. Oropharynx with dry mucous membranes and otherwise unremarkable. EYES: Normal conjunctiva. Sclera non-icteric. NECK: Supple. No nuchal rigidity. FROM. No JVD. RESPIRATORY: Clear to auscultation. CARDIAC: Tachycardic rate, normal rhythm. Extremities warm and well perfused. Pulses equal. ABDOMEN: Soft, non-distended. No tenderness to palpation. No rebound or guardin g. No masses. RECTAL: Deferred. MUSCULOSKELETAL: Chest examination reveals no tenderness. The back is symmetrical on inspection without obvious abnormality. There is no CVA tenderness to palpation. No joint edema. LOWER EXTREMITIES: Calves are equal size bilaterally and non-tender. No edema. No discoloration. NEURO: Normal sensorium. No sensory or motor deficits noted. SKIN: No rash or jaundice noted. ED COURSE: Critical Care: I have personally spent greater than 75 minutes of critical care time in the direct management of this patient. This includes bedside care, interpretation of diagnostic studies, and testing, discussion with consultants, patient, and family members, and other required patient management activities. This 75 minutes is in excess of all separately billable procedures. Austin Wells MD Past Med/Surg History Medical History Hypothyroidism Ovarian cancer Pulmonary embolism Surgical History Intraabdominal mass s/p surgical removal S/P total abdominal hysterectomy and bilateral salpingo-oophorectomy Family History Mother Breast cancer Age 60s - 70s Grandmother Breast cancer Age 60s - 70s Family/Other Breast cancer Neice, Breast cancer in 30s, Estrogen based Social History Smoking Status: Former smoker Second Hand Exposure: No; Do You Dip or Chew Tobacco: No; Tobacco Cessation Education Requested by Patient: No Hx Alcohol Use: No Hx Substance Use: No Preferred Language: Cypriot Communication Ability: Effective Roll Repairer Required: No Beliefs That Will Affect Care: None Current Living Situation: Other Other Information That Helps Us Care for You: Yes Feels Safe at Home: Yes Safety Concerns: Feels Safe At This Time Assistive Devices: Denture - Upper, Denture - Lower and Glasses Allergies Allergies Allergy/AdvReac Type Severity Reaction Status Date / Time No Known Allergies Allergy Mild Verified 03/30/22 20:32 Home Meds Home Medications Medication Instructions Recorded Confirmed bleomycin 15 unit solution for 0 unit IV .UD 03/30/22 04/08/22 injection levothyroxine 88 mcg tablet 88 mcg PO DAILYBB 03/30/22 04/08/22 olanzapine 5 mg tablet 10 mg PO QPM 03/30/22 04/08/22 omeprazole 20 mg capsule,delayed 20 mg PO QPM 03/30/22 04/08/22 release ondansetron HCl 8 mg tablet 8 mg PO Q8H PRN Nausea 03/30/22 04/08/22 prochlorperazine maleate 10 mg 10 mg PO Q6H PRN Nausea 03/30/22 04/08/22 tablet sennosides 8.6 mg tablet 8.6 mg PO QAM PRN Constipation 03/30/22 04/08/22 (Vegetable Laxative) dexamethasone 4 mg tablet 4 mg PO BID 04/08/22 04/08/22 Previous Rx's Medication Instructions Recorded rivaroxaban 15 mg tablet (Xarelto) 15 mg PO BID 21 days #42 tabs 04/01/22 rivaroxaban 20 mg tablet (Xarelto) 20 mg PO DAILY #60 tabs 04/01/22 Results & Data (ED) Vital Signs Vital Signs - 24 hr 04/08/22 09:25 04/08/22 10:07 04/08/22 10:27 Temperature 36.7 C Temperature Source Temporal Artery Scan Pulse Rate 133 H 99 H Pulse Rate [Right Finger] Respiratory Rate 18 Respiratory Effort / Characteristics Respiratory Depth Respiratory Pattern Blood Pressure 111/72 Blood Pressure [Right Arm] Blood Pressure Mean 85 Blood Pressure Mean [Right Arm] Blood Pressure Position [Right Arm] Pulse Oximetry 96 98 Oxygen Delivery Method Room Air Room Air Sepsis Recent Fever Within 48 Hours No Sepsis New/Unexplained Change in Mental Status No Sepsis Action Taken by Nursing No Action Required 04/08/22 11:38 04/08/22 11:45 Temperature 36.9 C Temperature Source Oral Pulse Rate Pulse Rate [Right Finger] 94 H Respiratory Rate 18 Respiratory Effort / Characteristics Non-Labored Spontaneous Respiratory Depth Normal Respiratory Pattern Regular Blood Pressure Blood Pressure [Right Arm] 122/78 Blood Pressure Mean Blood Pressure Mean [Right Arm] 92 Blood Pressure Position [Right Arm] Lying Pulse Oximetry 96 Oxygen Delivery Method Room Air Sepsis Recent Fever Within 48 Hours Sepsis New/Unexplained Change in Mental Status Sepsis Action Taken by Nursing Laboratory Data Attestation: I reviewed the patient's lab results. 04/08/22 10:13 04/08/22 10:13 Lab Results 04/08/22 04/08/22 04/08/22 Range/Units 10:13 10:13 10:13 WBC 0.59 L* (4.8-10.8) K/ul RBC 2.20 L (4.20-5.40) M/uL Hgb 6.2 L* (12.0-16.0) g/dl Hct 17.8 L* (37.0-47.0) % MCV 80.9 (80.0-100.0) fL MCH 28.2 (25.0-34.0) pg MCHC 34.8 (32.0-36.0) g/dL RDW Std Deviation 49.6 H (36.4-46.3) fL RDW Coeff of Madhav 17.1 H (11.5-14.5) % Plt Count 7 L* (130-400) K/uL MPV 10.3 (9.4-12.4) fL Immature Gran % (Auto) 0.0 % Neut % (Auto) 1.7 % Lymph % (Auto) 84.7 % [place] % (Auto) 11.9 % Eos % (Auto) 1.7 % Baso % (Auto) 0.0 % Reticulocyte % (Auto) (0.5-2.0) % Neut # (Auto) 0.01 L* (1.40-6.50) K/uL Lymph # (Auto) 0.50 L (1.2-3.4) K/uL [place] # (Auto) 0.07 L (0.11-0.59) K/uL Eos # (Auto) 0.01 (0-0.50) K/uL Baso # (Auto) 0.00 (0-0.2) K/uL Reticulocyte # (0.02-0.10) 10^6/uL Immature Gran # (Auto) 0.00 L (0.01-0.20) K/uL PT 14.2 H (9.0-12.0) Seconds INR 1.4 H (0.9-1.1) Sodium 132 L (136-145) mmol/L Potassium 3.0 L (3.5-5.1) mmol/L Chloride 95 L (98-107) mmol/L Carbon Dioxide 28 (21-32) mmol/L Anion Gap 9 (3-11) BUN 18 (6-23) mg/dl Creatinine 1.18 (0.6-1.2) mg/dl Est Cr Clr Drug Dosing 57.0 ml/min Est GFR ( Amer) 59.7 ml/min Est GFR (Non-Af Amer) 51.5 ml/min BUN/Creatinine Ratio 15.3 (10-20) Glucose 121 H (70-99(Fasting)) mg/dl Calcium 8.8 (8.5-10.1) mg/dl Phosphorus 2.7 (2.5-4.9) mg/dl Magnesium 1.3 L (1.7-2.4) mg/dl Iron 97 (35-150) mcg/dl Unsaturated IBC 155 (155-355) mcg/dl Transferrin 187 L (200-360) mg/dl Ferritin 456.4 H (8-388) ng/ml Total Bilirubin 0.4 (0.2-1.0) mg/dl AST 8 L (13-39) U/L ALT 5 L (7-52) U/L Alkaline Phosphatase 67 (34-104) U/L Troponin I High Sens 6.2 (0-14) pg/ml Total Protein 6.8 (6.0-8.3) gm/dl Albumin 3.6 (3.4-5.0) gm/dl Globulin 3.2 (2.5-4.0) gm/dl Albumin/Globulin Ratio 1.1 (0.9-2) TSH (0.300-4.500) uIu/ml SARS-CoV-2, RNA, NAAT (NEGATIVE) Blood Type Blood Type Recheck Antibody Screen Crossmatch 04/08/22 04/08/22 04/08/22 Range/Units 10:13 10:13 10:13 WBC (4.8-10.8) K/ul RBC (4.20-5.40) M/uL Hgb (12.0-16.0) g/dl Hct (37.0-47.0) % MCV (80.0-100.0) fL MCH (25.0-34.0) pg MCHC (32.0-36.0) g/dL RDW Std Deviation (36.4-46.3) fL RDW Coeff of Madhav (11.5-14.5) % Plt Count (130-400) K/uL MPV (9.4-12.4) fL Immature Gran % (Auto) % Neut % (Auto) % Lymph % (Auto) % [place] % (Auto) % Eos % (Auto) % Baso % (Auto) % Reticulocyte % (Auto) 0.6 (0.5-2.0) % Neut # (Auto) (1.40-6.50) K/uL Lymph # (Auto) (1.2-3.4) K/uL [place] # (Auto) (0.11-0.59) K/uL Eos # (Auto) (0-0.50) K/uL Baso # (Auto) (0-0.2) K/uL Reticulocyte # 0.01 L (0.02-0.10) 10^6/uL Immature Gran # (Auto) (0.01-0.20) K/uL PT (9.0-12.0) Seconds INR (0.9-1.1) Sodium (136-145) mmol/L Potassium (3.5-5.1) mmol/L Chloride (98-107) mmol/L Carbon Dioxide (21-32) mmol/L Anion Gap (3-11) BUN (6-23) mg/dl Creatinine (0.6-1.2) mg/dl Est Cr Clr Drug Dosing ml/min Est GFR ( Amer) ml/min Est GFR (Non-Af Amer) ml/min BUN/Creatinine Ratio (10-20) Glucose (70-99(Fasting)) mg/dl Calcium (8.5-10.1) mg/dl Phosphorus (2.5-4.9) mg/dl Magnesium (1.7-2.4) mg/dl Iron Cancelled (35-150) mcg/dl Unsaturated IBC Cancelled (155-355) mcg/dl Transferrin Cancelled (200-360) mg/dl Ferritin Cancelled (8-388) ng/ml Total Bilirubin (0.2-1.0) mg/dl AST (13-39) U/L ALT (7-52) U/L Alkaline Phosphatase (34-104) U/L Troponin I High Sens (0-14) pg/ml Total Protein (6.0-8.3) gm/dl Albumin (3.4-5.0) gm/dl Globulin (2.5-4.0) gm/dl Albumin/Globulin Ratio (0.9-2) TSH 3.153 (0.300-4.500) uIu/ml SARS-CoV-2, RNA, NAAT (NEGATIVE) Blood Type Blood Type Recheck Antibody Screen Crossmatch 04/08/22 04/08/22 04/08/22 Range/Units 10:27 11:45 12:43 WBC (4.8-10.8) K/ul RBC (4.20-5.40) M/uL Hgb (12.0-16.0) g/dl Hct (37.0-47.0) % MCV (80.0-100.0) fL MCH (25.0-34.0) pg MCHC (32.0-36.0) g/dL RDW Std Deviation (36.4-46.3) fL RDW Coeff of Madhav (11.5-14.5) % Plt Count (130-400) K/uL MPV (9.4-12.4) fL Immature Gran % (Auto) % Neut % (Auto) % Lymph % (Auto) % [place] % (Auto) % Eos % (Auto) % Baso % (Auto) % Reticulocyte % (Auto) (0.5-2.0) % Neut # (Auto) (1.40-6.50) K/uL Lymph # (Auto) (1.2-3.4) K/uL [place] # (Auto) (0.11-0.59) K/uL Eos # (Auto) (0-0.50) K/uL Baso # (Auto) (0-0.2) K/uL Reticulocyte # (0.02-0.10) 10^6/uL Immature Gran # (Auto) (0.01-0.20) K/uL PT (9.0-12.0) Seconds INR (0.9-1.1) Sodium (136-145) mmol/L Potassium (3.5-5.1) mmol/L Chloride (98-107) mmol/L Carbon Dioxide (21-32) mmol/L Anion Gap (3-11) BUN (6-23) mg/dl Creatinine (0.6-1.2) mg/dl Est Cr Clr Drug Dosing ml/min Est GFR ( Amer) ml/min Est GFR (Non-Af Amer) ml/min BUN/Creatinine Ratio (10-20) Glucose (70-99(Fasting)) mg/dl Calcium (8.5-10.1) mg/dl Phosphorus (2.5-4.9) mg/dl Magnesium (1.7-2.4) mg/dl Iron (35-150) mcg/dl Unsaturated IBC (155-355) mcg/dl Transferrin (200-360) mg/dl Ferritin (8-388) ng/ml Total Bilirubin (0.2-1.0) mg/dl AST (13-39) U/L ALT (7-52) U/L Alkaline Phosphatase (34-104) U/L Troponin I High Sens (0-14) pg/ml Total Protein (6.0-8.3) gm/dl Albumin (3.4-5.0) gm/dl Globulin (2.5-4.0) gm/dl Albumin/Globulin Ratio (0.9-2) TSH (0.300-4.500) uIu/ml SARS-CoV-2, RNA, NAAT NEGATIVE (NEGATIVE) Blood Type O Negative Blood Type Recheck O Negative Antibody Screen NEGATIVE Crossmatch See Detail Administered Medications Olanzapine (Olanzapine 10 Mg Tab) 10 mg PO QPM RAJESH Stop: 05/08/22 20:59 Last Admin: 04/08/22 20:15 Dose: 10 mg Documented By: MOLLY Pantoprazole Sodium (Pantoprazole 40 Mg Tab) 40 mg PO QPM RAJESH Stop: 05/08/22 20:59 Last Admin: 04/08/22 20:53 Dose: 40 mg Documented By: MOLYL Prochlorperazine (Prochlorperazine Maleate 10 Mg Tab) 10 mg PO Q6H PRN PRN Reason: Nausea Stop: 05/08/22 13:25 Last Admin: 04/08/22 18:32 Dose: 10 mg Documented By: JESSEE Discontinued Medications Sodium Chloride (Nss 1000ml) 1,000 mls @ 999 mls/hr IV .Q1H1M ONE Stop: 04/08/22 10:43 Last Infusion: 04/08/22 11:10 Dose: 0 mls/hr Documented By: Admin: 04/08/22 10:08 Dose: 999 mls/hr Documented By: STEVE Magnesium Sulfate/Dextrose (Magnesium Sulfate / D5w) 1 gm in 100 mls @ 100 mls/hr IV Q1H RAJESH Stop: 04/08/22 12:50 Last Infusion: 04/08/22 14:48 Dose: 0 mls/hr Documented By: Admin: 04/08/22 13:29 Dose: 100 mls/hr Documented By: Infusion: 04/08/22 12:30 Dose: 100 mls/hr Documented By: Admin: 04/08/22 11:30 Dose: 100 mls/hr Documented By: ALEXIS Potassium Chloride (Potassium Chloride Crtab 20 Meq Tabcr) 40 meq PO NOW STA Stop: 04/08/22 13:27 Last Admin: 04/08/22 14:32 Dose: 40 meq Documented By: ALEXIS Discharge Plan Visit Data Chief Complaint: Referred by Doctor Stated Complaint: REFERRED BY DOCTOR ED Provider: Austin Wells Discharge Problem: Pancytopenia, Thrombocytopenia, Hypomagnesemia, Pulmonary embolism, Ovarian cancer Patient Disposition: Admitted As Inpatient Discharge Instructions Interventions: ED Discharge Assessment Last Done: 04/08/22 15:47
[2022-04-08 12:55] LABS: Ferritin 456.4 ng/ml (8-388)
[2022-04-08 13:00] LABS: Reticulocyte % 0.6 % (0.5-2.0); Reticulocytes # 0.01 10^6/uL (0.02-0.10)
--- NOTE | 2022-04-08 13:11 | History & Physical Report ---
Date of Service April 08, 2022 Assessment & Plan (1) Ovarian cancer: (2) Pancytopenia: (3) Thrombocytopenia: (4) Pulmonary embolism: Plan: -Admit to PCU -Platelet 6.2, hematocrit 17.8, WBC 0.59, trend -Secondary pancytopenia due to current chemotherapy regimen with bleomycin, etoposide, cisplatin -Discussion with Dr. Gary Montgomery held over the phone, appreciate recommendations, will hold Xarelto -Recent diagnosis of pulmonary embolism ~1 week ago noted, patient denies any current respiratory symptoms, no shortness of breath, afebrile -Discussion with blood bank, will transfuse 1 unit platelet now, 1 unit of blood now, Blood consent obtained at bedside. - Transfuse additional units as needed. No signs of spontaneous bleed currently. Attempt to keep platelet count greater than 10, hemoglobin greater than 7.0 -Patient notes some maroon-colored stools however admits to eating large amounts of beets in the last day, guaiac all stools. Would suspect a lower hemoglobin patient had an active GI bleed (5) Hypokalemia: (6) Hypomagnesemia: Plan: - K+ 3.0 on admission, Mag 1.3, Electrolyte replacement ordered - Follow with am labs (7) Hypothyroidism: Plan: - Cont levothyroxine DVT PPx: - teds, scds CODE: Full code Dispo: From home, likely to remain in the hospital x 1-2 days A total of 76 minutes were spent with greater than 50% of that time face to face with the patient, personally reviewing all current laboratories, imaging studies, past medication reconciliation, outpatient chart review, and discussion with specialists to collaborate care for the patient with attending. Please see attending documentation for corrections and/or additions. 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 In August 2021 had recurrence with metastatic disease involving the abdomen, where a intra- abdominal mass measuring 18 cm including few peritoneal nodules were removed. Staging is cT1, cN0, cM0. Has underwent BILLY,BSO and lymph lewis [place] in 11/[address] [facility] [place] s/p resection of intra-abdominal mass on 11/27/[address] Gan. Current chemotherapy includes BEP: Bleomycin, etoposide, cisplatin every 21 days. She follows routinely with Dr. Gary Montgomery as an outpatient. Today she was due to have her last round of this chemotherapy, however after bloodwork evaluation in cancer center, was referred to the ER because of her counts being too low. Felicia most recently had chemotherapy on 03/29/22. Since her last session, she has had persistent nausea and vomiting, fatigue and weakness. She reports some mild knee pain. She has had a small cough for the past week, thinks this is allergies however. Pt denies any recent fever, chills or sweats. She was able to take her morning medications including xarelto 15 mg BID since pulmonary embolism diagnosis last week. Pt was referred to the ER due to worsening blood work and admission for transfusion due to pancytopenia. Reports that she quit smoking 3 years ago, and has not drank any alcohol since starting chemotherapy. Allergies Allergy/AdvReac Type Severity Reaction Status Date / Time No Known Allergies Allergy Mild Verified 03/30/22 20:32 Home Medications Medication Instructions Recorded Confirmed Type bleomycin 15 unit solution for 0 unit IV .UD 03/30/22 04/08/22 History injection levothyroxine 88 mcg tablet 88 mcg PO DAILYBB 03/30/22 04/08/22 History olanzapine 5 mg tablet 10 mg PO QPM 03/30/22 04/08/22 History omeprazole 20 mg capsule,delayed 20 mg PO QPM 03/30/22 04/08/22 History release ondansetron HCl 8 mg tablet 8 mg PO Q8H PRN Nausea 03/30/22 04/08/22 History prochlorperazine maleate 10 mg 10 mg PO Q6H PRN Nausea 03/30/22 04/08/22 History tablet sennosides 8.6 mg tablet 8.6 mg PO QAM PRN Constipation 03/30/22 04/08/22 History (Vegetable Laxative) rivaroxaban 15 mg tablet (Xarelto) 15 mg PO BID 21 days #42 tabs 04/01/22 04/08/22 Rx rivaroxaban 20 mg tablet (Xarelto) 20 mg PO DAILY #60 tabs 04/01/22 04/08/22 Rx dexamethasone 4 mg tablet 4 mg PO BID 04/08/22 04/08/22 History Past Med/Surg History Medical History (Updated 04/08/22 @ 14:05 by Little Schmidt PA-C) Hypothyroidism Ovarian cancer Pulmonary embolism Surgical History (Updated 04/08/22 @ 13:50 by Little Schmidt PA-C) Intraabdominal mass s/p surgical removal S/P total abdominal hysterectomy and bilateral salpingo-oophorectomy Family History (Updated 04/08/22 @ 13:08 by Little Schmidt PA-C) Mother Breast cancer Age 60s - 70s Grandmother Breast cancer Age 60s - 70s Family/Other Breast cancer Neice, Breast cancer in 30s, Estrogen based Social History Smoking Status: Former smoker Second Hand Exposure: No; Hx Alcohol Use: No Hx Substance Use: No Preferred Language: Divehi Communication Ability: Effective Event Technician Required: No Beliefs That Will Affect Care: None Current Living Situation: Family Feels Safe at Home: Yes Assistive Devices: None Review of Systems Review of Systems: Constitutional: No fever, sweats or chills, + fatigue and lethargy Eyes: No diplopia, no worsening or blurred vision ENT: normal hearing, no trouble swallowing Respiratory: No cough, sputum, dyspnea at rest or on exertion Cardiovascular: No chest pain, tightness or palpitations Abdomen: No pain, nausea, vomiting, diarrhea or constipation Musculoskeletal: + Bilateral knee joint pain, no other MSK pain, no calf pain or swelling Neurologic: + Generalized weakness, no numbness/tingling, or balance problems Psychiatric: No anxiety or depression Skin: No rash or itch Physical Exam Physical Exam: General: awake, alert, no apparent distress, + thin, + alopecia Head: Normocephalic, atraumatic ENT: PERRL, EOMI, no pharyngeal exudate, mucous membranes moist Chest: Clear to auscultation, + Mediport accessed in the right chest wall, on room air, no adventitious breath sounds Cardiac: Regular rate and rhythm, no murmur, no JVD, normal peripheral pulses, good capillary refill Abdominal: NABS x 4 quadrants, soft, nondistended, nontender to palpation, no rebound or guarding Extremities: Normal inspection, no peripheral edema or erythema, calfs nontender to palpation Psych: Normal mood and affect Neuro: AAO x 3, strength intact bilaterally and rated 5/5, no motor deficits, speech is clear, no peripheral sensory deficits Results & Data Results & Data ([facility]) Vital Signs (Past 12 Hours) Vital Signs Temp Pulse Pulse Resp BP BP Pulse Ox 04/08/22 11:45 36.9 C 04/08/22 11:38 94 H 18 122/78 96 04/08/22 10:27 99 H 04/08/22 10:07 98 04/08/22 09:25 36.7 C 133 H 18 111/72 96 O2 Del Method 04/08/22 11:45 04/08/22 11:38 Room Air 04/08/22 10:27 04/08/22 10:07 Room Air 04/08/22 09:25 Room Air Laboratory Results 04/08/22 04/08/22 04/08/22 11:45 10:27 10:13 WBC RBC Hgb Hct MCV MCH MCHC RDW Std Deviation RDW Coeff of Madhav Plt Count MPV Immature Gran % (Auto) Neut % (Auto) Lymph % (Auto) [place] % (Auto) Eos % (Auto) Baso % (Auto) Reticulocyte % (Auto) Neut # (Auto) Lymph # (Auto) [place] # (Auto) Eos # (Auto) Baso # (Auto) Reticulocyte # Immature Gran # (Auto) PT INR Sodium Potassium Chloride Carbon Dioxide Anion Gap BUN Creatinine Est Cr Clr Drug Dosing Est GFR ( Amer) Est GFR (Non-Af Amer) BUN/Creatinine Ratio Glucose Calcium Phosphorus Magnesium Iron Cancelled Unsaturated IBC Cancelled Transferrin Cancelled Ferritin Cancelled Total Bilirubin AST ALT Alkaline Phosphatase Troponin I High Sens Total Protein Albumin Globulin Albumin/Globulin Ratio TSH SARS-CoV-2, RNA, NAAT NEGATIVE Blood Type O Negative Antibody Screen NEGATIVE Crossmatch See Detail 04/08/22 04/08/22 04/08/22 10:13 10:13 10:13 WBC RBC Hgb Hct MCV MCH MCHC RDW Std Deviation RDW Coeff of Madhav Plt Count MPV Immature Gran % (Auto) Neut % (Auto) Lymph % (Auto) [place] % (Auto) Eos % (Auto) Baso % (Auto) Reticulocyte % (Auto) 0.6 Neut # (Auto) Lymph # (Auto) [place] # (Auto) Eos # (Auto) Baso # (Auto) Reticulocyte # 0.01 L Immature Gran # (Auto) PT INR Sodium 132 L Potassium 3.0 L Chloride 95 L Carbon Dioxide 28 Anion Gap 9 BUN 18 Creatinine 1.18 Est Cr Clr Drug Dosing 57.0 Est GFR ( Amer) 59.7 Est GFR (Non-Af Amer) 51.5 BUN/Creatinine Ratio 15.3 Glucose 121 H Calcium 8.8 Phosphorus 2.7 Magnesium 1.3 L Iron 97 Unsaturated IBC 155 Transferrin 187 L Ferritin 456.4 H Total Bilirubin 0.4 AST 8 L ALT 5 L Alkaline Phosphatase 67 Troponin I High Sens 6.2 Total Protein 6.8 Albumin 3.6 Globulin 3.2 Albumin/Globulin Ratio 1.1 TSH 3.153 SARS-CoV-2, RNA, NAAT Blood Type Antibody Screen Crossmatch 04/08/22 04/08/22 10:13 10:13 WBC 0.59 L* RBC 2.20 L Hgb 6.2 L* Hct 17.8 L* MCV 80.9 MCH 28.2 MCHC 34.8 RDW Std Deviation 49.6 H RDW Coeff of Madhav 17.1 H Plt Count 7 L* MPV 10.3 Immature Gran % (Auto) 0.0 Neut % (Auto) 1.7 Lymph % (Auto) 84.7 [place] % (Auto) 11.9 Eos % (Auto) 1.7 Baso % (Auto) 0.0 Reticulocyte % (Auto) Neut # (Auto) 0.01 L* Lymph # (Auto) 0.50 L [place] # (Auto) 0.07 L Eos # (Auto) 0.01 Baso # (Auto) 0.00 Reticulocyte # Immature Gran # (Auto) 0.00 L PT 14.2 H INR 1.4 H Sodium Potassium Chloride Carbon Dioxide Anion Gap BUN Creatinine Est Cr Clr Drug Dosing Est GFR ( Amer) Est GFR (Non-Af Amer) BUN/Creatinine Ratio Glucose Calcium Phosphorus Magnesium Iron Unsaturated IBC Transferrin Ferritin Total Bilirubin AST ALT Alkaline Phosphatase Troponin I High Sens Total Protein Albumin Globulin Albumin/Globulin Ratio TSH SARS-CoV-2, RNA, NAAT Blood Type Antibody Screen Crossmatch Code Status & VTE Plan Code Status Full code-discussed with patient Supervising Physician Co-Signing Physician Notes Date of Service: April 08, 2022 History and physical exam performed by me. History notable for 56-year-old woman with history of ground no loss of cell tumor of the left ovary recurrent with metastatic disease currently on chemo, recent PE on Xarelto who presents from oncology clinic for pancytopenia. Reports she has been having generalized weakness since chemo a week ago with nausea and vomiting after yesterday. Denied other symptoms. Reported one episode of dark stool and urine few days ago after eating lots of beets. States urine has been normal since and has not had BM since Exam notable for pallor Labs show leukopenia of 0.59, anemia of with hemoglobin of 6.2, thrombocytopenia of 7. BMP also notable for hypokalemia with potassium of 3, hypomagnesemia with magnesium of 1.3. Based on patient's history and recent chemo, pancytopenia likely related to chemotherapy. Obtain transfusion consent. Transfuse PRBC and platelet with goal of hemoglobin above 7 and platelets at least above 10,000. Discussed with oncologist Dr. Gary Montgomery. He agrees with the plan and recommends holding patient's Xarelto for at least 1 day Monitor CBC Other plans as detailed by Little Schmidt PA-C
[2022-04-08] MEDS ORDERED: POTASSIUM CHLORIDE CRTAB 20 MEQ TABCR PO STA (13:26)
--- NOTE | 2022-04-08 13:40 | Communication Note ---
Date of Service: April 08, 2022 History and physical exam performed by me. History notable for 56-year-old woman with history of ground no loss of cell tumor of the left ovary recurrent with metastatic disease currently on chemo, recent PE on Xarelto who presents from oncology clinic for pancytopenia. Reports she has been having generalized weakness since chemo a week ago with angelique sea and vomiting after yesterday. Denied other symptoms. Exam notable for pallor Labs show leukopenia of 0.59, anemia of with hemoglobin of 6.2, thrombocytopenia of 7. BMP also notable for hypokalemia with potassium of 3, hypomagnesemia with magnesium of 1.3. Based on patient's history and recent chemo, pancytopenia likely related to chemotherapy. Obtain transfusion consent. Transfuse PRBC and platelet with goal of hemoglobin above 7 and platelets at least above 10,000. Discussed with oncologist Dr. Gary Montgomery. He agrees with the plan and recommends holding patient's Xarelto for at least 1 day Monitor CBC Other plans as detailed by Little Schmidt PA-C
[2022-04-08 17:12] LABS: Appearance Urine Clear (Clear); Bacteria Urine Automated Negative (Negative); Bilirubin Urine Negative (Negative); Blood Urine Trace (Negative); Color Urine Yellow; Glucose Urine UA Negative (Negative); Ketones Urine Negative (Negative); Leukocyte Esterase Urine Negative (Negative); Nitrite Urine Negative (Negative); Protein Urine Negative (Negative); RBC Urine Automated 0-4 /hpf (0-4); Specific Gravity Urine 1.009 (1.000-1.030); Urobilinogen Urine Negative (Negative)
[2022-04-08] MEDS ORDERED: HEPARIN 100 UNIT/ML 5ML FLUSH FLUSH PRN (18:23)
[2022-04-08] MEDS: PROCHLORPERAZINE MALEATE 10 MG TAB PO PRN (18:32)
[2022-04-08] MEDS: OLANZapine 10 MG TAB PO SCH (20:15)
[2022-04-08] MEDS: PANTOprazole 40 MG TAB PO SCH (20:53)
--- NOTE | 2022-04-09 06:13 | Electrocardiogram Report ---
Test Reason : Blood Pressure : / mmHG Vent. Rate : 115 BPM Atrial Rate : 115 BPM P-R Int : 178 ms QRS Dur : 090 ms QT Int : 318 ms P-R-T Axes : 030 -14 038 degrees QTc Int : 439 ms Sinus tachycardia Minimal voltage criteria for LVH, may be normal variant Cannot rule out Anterior infarct , age undetermined Nonspecific T wave abnormality Abnormal ECG When compared with ECG of 30-MAR-2022 17:41, No significant change Confirmed by Doe Cisse ([id number]) on 04/09/2022 6:13:07 AM Referred By: Gary Montgomery Confirmed By:Doe Cisse
[2022-04-09] MEDS: LEVOTHYROXINE SODIUM 88 MCG TABLET PO SCH (07:36)
[2022-04-09 08:02] LABS: Albumin Globulin Ratio 1.2 (0.9-2); Albumin Level 3.6 gm/dl (3.4-5.0); BUN Creatinine Ratio 10.7 (10-20); Bilirubin,Total 0.4 mg/dl (0.2-1.0); Calcium 8.7 mg/dl (8.5-10.1); Creatinine Clr Calc Pharmacy 60.2 ml/min; Est GFR (African American) 63.6 ml/min; Est GFR (Non-African American) 54.9 ml/min; Total Protein 6.6 gm/dl (6.0-8.3)
[2022-04-09 08:20] LABS: Hematocrit (blood only) 22.7 % (37.0-47.0); Lymphocytes % (auto) 78.4 %; Mean Corpuscular Hemoglobin 28.7 pg (25.0-34.0); Mean Corpuscular Hgb Conc 35.2 g/dL (32.0-36.0); Mean Corpuscular Volume 81.4 fL (80.0-100.0); Mean Platelet Volume 10.7 fL (9.4-12.4); Monocytes # (auto) 0.08 K/uL (0.11-0.59); Monocytes % (auto) 15.7 %; Neutrophils # (auto) 0.03 K/uL (1.40-6.50); Neutrophils % (auto) 5.9 %; Platelet Count 14 K/uL (130-400); RDW Coefficient of Variation 15.5 % (11.5-14.5); RDW Standard Deviation 46.4 fL (36.4-46.3); Red Blood Count 2.79 M/uL (4.20-5.40); White Blood Count 0.51 K/ul (4.8-10.8)
[2022-04-09] MEDS: PROCHLORPERAZINE MALEATE 10 MG TAB PO PRN ×2 (09:04→21:30)
[2022-04-09] MEDS ORDERED: POTASSIUM CHLORIDE CRTAB 20 MEQ TABCR PO STA ×2 (09:06→13:02)
[2022-04-09] MEDS ORDERED: Heparin IV Adult Wt-Based Low-Dose *NO* Bolus Protocol IV SCH (13:15)
--- NOTE | 2022-04-09 15:13 | Hospitalist Progress Note ---
Date of Service April 09, 2022 Assessment & Plan (1) Pancytopenia: (2) Thrombocytopenia: Plan: Possible related to current chemotherapy regimen with bleomycin, etoposide, cisplatin Pt was sent to the ED for abnormal lab Platelet 7, hgb 6.2 WBC 0.51 on admission Status post 1 unit PRBC and 1 unit platelet given yesterday Hemoglobin today 8 and platelet 14 Case discussed with oncology Dr. Montgomery over the phone that recommended to continue monitor hemoglobin and platelet Goal to keep platelet count greater than 10, hemoglobin greater than 7.0 Will hold on further transfusion of platelets for now unless patient develops any signs of bleeding Continue monitor CBC (3) Pulmonary embolism: Plan: Recent diagnosis of pulmonary embolism ~1 week ago She was started on Xarelto that was held yesterday due to low platelet Pt denies any abnormal bleeding case discussed with Oncology Dr. Montgomery that recommended to start low dose of IV heparin drip with no bolus since pt is very high risk for more clot If platelet improves and no evidence of bleeding, will transition to PO Xarelto tomorrow Continue monitor closely (4) Ovarian cancer: Plan: Follow up with outpatient Oncology Dr. Montgomery (5) Electrolyte abnormality: Plan: Possible related to vomiting Potassium 3 today K replaced Will continue monitor K and Mg (6) Hypothyroidism: Plan: - Cont levothyroxine DVT PPx: teds, scds Starting on low dose of IV heparin drip CODE: Full code Disposition A total of 50 minutes were spent with greater than 50% of that time face to face with the patient, personally reviewing all current laboratories, imaging studies, past medication reconciliation, outpatient chart review, and discussion with specialists to collaborate care for the patient. Admission and Anticipated Discharge Date Admission Date: April 08, 2022 Subjective Patient was seen and examined for follow-up of pancytopenia Lying in bed with no acute distress resting comfortable Patient said she feels a lot better today because she has more energy She said she was able to tolerate a diet and denies any nausea and vomiting Pt said that her stool is normal She received 1 unit PRBC and 1 unit of platelets last night I spoke to oncology Dr. Montgomery that recommended to start on low-dose heparin drip since patient had a PE recently about a week ago Denies any chest pain, palpitation, dizziness, shortness of breath and GI bleeding Review of Systems Review of Systems: All systems reviewed & are unremarkable except as noted in Subjective Physical Exam Physical Exam: General- No acute distress, +olopecia Head- atraumatic Eyes- PERRL, EOMI, ENT- oropharynx clear Neck- supple, no JVD Lungs- clear to auscultation Chest - + Mediport accessed in the right chest wall Heart- regular rhythm; no murmur Abdomen- normal bowel sounds, soft, nontender Extremities- no calf tenderness Neuro- alert, oriented x 3; PERRL, EOMI; no facial palsy; no dysarthria Skin- warm & dry Results & Data Results & Data ([facility]) Vital Signs (Past 12 Hours) Vital Signs Temp Pulse Resp BP Pulse Ox O2 Del Method 04/09/22 11:53 36.6 C 89 18 101/66 96 Room Air 04/09/22 07:01 37.2 C 95 H 17 93/60 L 93 Room Air 04/09/22 03:37 36.8 C 115 H 20 117/75 93 Room Air
[2022-04-09] MEDS: HEPARIN SODIUM/DEXTROSE 25,000 UNITS/500 ML BAG IV SCH (16:20)
[2022-04-09] MEDS: PANTOprazole 40 MG TAB PO SCH (20:39)
[2022-04-09] MEDS: OLANZapine 10 MG TAB PO SCH (20:39)
[2022-04-09 23:45] LABS: Partial Thromboplastin Ratio 1.1; Partial Thromboplastin Time 31.5 Seconds (21.0-31.0)
[2022-04-10] MEDS ORDERED: HEPARIN IV BOLUS 3,000 UNITS in SYRINGE 0 ML IV ONE (00:30)
[2022-04-10] MEDS: LEVOTHYROXINE SODIUM 88 MCG TABLET PO SCH (05:57)
[2022-04-10 06:54] LABS: Hemoglobin 7.8 g/dl (12.0-16.0); Mean Corpuscular Hemoglobin 29.3 pg (25.0-34.0); Mean Corpuscular Hgb Conc 35.5 g/dL (32.0-36.0); Mean Corpuscular Volume 82.7 fL (80.0-100.0); Platelet Count 14 K/uL (130-400); RDW Coefficient of Variation 15.5 % (11.5-14.5); RDW Standard Deviation 47.3 fL (36.4-46.3); Red Blood Count 2.66 M/uL (4.20-5.40); White Blood Count 1.27 K/ul (4.8-10.8)
[2022-04-10 07:20] LABS: Albumin Globulin Ratio 1.1 (0.9-2); Albumin Level 3.3 gm/dl (3.4-5.0); BUN Creatinine Ratio 8.2 (10-20); Bilirubin,Total 0.3 mg/dl (0.2-1.0); Calcium 8.6 mg/dl (8.5-10.1); Creatinine Clr Calc Pharmacy 68.6 ml/min; Est GFR (African American) 74.7 ml/min; Est GFR (Non-African American) 64.5 ml/min; Globulin 3.1 gm/dl (2.5-4.0); Magnesium 1.4 mg/dl (1.7-2.4); Phosphorus 2.4 mg/dl (2.5-4.9); Potassium 3.6 mmol/L (3.5-5.1); Total Protein 6.4 gm/dl (6.0-8.3)
[2022-04-10 07:23] LABS: Partial Thromboplastin Ratio 1.3; Partial Thromboplastin Time 34.7 Seconds (21.0-31.0)
[2022-04-10 07:28] LABS: Eosinophils # (auto) 0.01 K/uL (0-0.50); Eosinophils % (auto) 0.8 %; Immature Granulocytes # (auto) 0.01 K/uL (0.01-0.20); Immature Granulocytes % (auto) 0.8 %; Lymphocytes # (auto) 0.89 K/uL (1.2-3.4); Lymphocytes % (auto) 70.1 %; Monocytes # (auto) 0.17 K/uL (0.11-0.59); Monocytes % (auto) 13.4 %; Neutrophils # (auto) 0.19 K/uL (1.40-6.50); Neutrophils % (auto) 14.9 %
[2022-04-10 07:29] LABS: Toxic Granulation 1+
[2022-04-10] MEDS ORDERED: HEPARIN SOD (PORCINE) 1000 UNIT/ML IV ONE ×2 (08:00→16:00)
[2022-04-10] MEDS ORDERED: MAGNESIUM SULFATE / D5W 1 GM/100 ML BAG IV ONE (08:13)
[2022-04-10] MEDS: MAGNESIUM OXIDE 400 MG TAB PO SCH ×2 (08:58→20:06)
[2022-04-10] MEDS: PROCHLORPERAZINE MALEATE 10 MG TAB PO PRN ×2 (08:58→20:39)
[2022-04-10 15:40] LABS: Partial Thromboplastin Ratio 1.4; Partial Thromboplastin Time 37.9 Seconds (21.0-31.0)
--- NOTE | 2022-04-10 16:22 | Hospitalist Progress Note ---
Date of Service April 10, 2022 Assessment & Plan (1) Pancytopenia: (2) Thrombocytopenia: Plan: Possible related to current chemotherapy regimen with bleomycin, etoposide, cisplatin Pt was sent to the ED for abnormal lab Platelet 7, hgb 6.2 WBC 0.51 on admission Status post 1 unit PRBC and 1 unit platelet given on admission Hemoglobin today 7.8 (essentially unchanged from yesterday post transfusion 8) and platelet 14 - unchanged from yesterday Case discussed with oncology Dr. Montgomery - recommends to continue monitor hemoglobin and platelet Goal to keep platelet count greater than 10, hemoglobin greater than 7.0 Will hold on further transfusion of platelets for now unless patient develops any signs of bleeding Continue monitor CBC (3) Pulmonary embolism: Plan: Recent diagnosis of pulmonary embolism ~1 week ago She was started on Xarelto that was held due to low platelet Pt denies any abnormal bleeding case discussed with Oncology Dr. Montgomery that recommended to start low dose of IV heparin drip with no bolus since pt is very high risk for more clot - recommends to continue w/ iv heparin today (04/10) If platelet improves and no evidence of bleeding, will transition to PO Xarelto possibly tomorrow Continue monitor closely (4) Ovarian cancer: Plan: Follow up with outpatient Oncology Dr. Montgomery (5) Electrolyte abnormality: Plan: Possible related to vomiting Potassium 3.6 today But Mag only 1.4 Replace and monitor K and Mag (6) Hypothyroidism: Plan: - Cont levothyroxine DVT PPx: teds, scds Starting on IV heparin CODE: Full code Admission and Anticipated Discharge Date Admission Date: April 08, 2022 Subjective Patient was seen and examined for follow-up of pancytopenia Lying in bed with no acute distress resting comfortable Pt reports stool is normal/ brown/green color She received 1 unit PRBC and 1 unit of platelets on admission - now Hgb and plt stable Denies any chest pain, palpitation, dizziness, shortness of breath or GI bleeding Oncology Dr. Montgomery updated - recommends to continue on iv heparin and continue to monitor Review of Systems Review of Systems: All systems reviewed & are unremarkable except as noted in Subjective Physical Exam Physical Exam: General: awake, alert, no apparent distress Head: Normocephalic, atraumatic ENT: PERRL, EOMI, no pharyngeal exudate Chest: Clear to auscultation, + Mediport accessed in the right chest wall, on room air, no adventitious breath sounds Cardiac: Regular rate and rhythm, no murmur, no JVD, normal peripheral pulses Abdominal: NABS x 4 quadrants, soft, nondistended, nontender to palpation Extremities: Normal inspection, no peripheral edema or erythema Psych: Normal mood and affect Neuro: AAO x 3, speech fluent, no facial asymmetry, moves extremities Results & Data Results & Data ([facility]) Vital Signs (Past 12 Hours) Vital Signs Temp Pulse Resp BP Pulse Ox O2 Del Method 04/10/22 11:42 36.9 C 98 H 18 97/61 L 94 Room Air 04/10/22 07:33 36.9 C 100 H 18 113/76 94 Room Air Laboratory Results 04/10/22 04/10/22 04/10/22 Range/Units 14:43 06:29 06:29 WBC (4.8-10.8) K/ul RBC (4.20-5.40) M/uL Hgb (12.0-16.0) g/dl Hct (37.0-47.0) % MCV (80.0-100.0) fL MCH (25.0-34.0) pg MCHC (32.0-36.0) g/dL RDW Std Deviation (36.4-46.3) fL RDW Coeff of Madhav (11.5-14.5) % Plt Count (130-400) K/uL Immature Gran % (Auto) % Neut % (Auto) % Lymph % (Auto) % [place] % (Auto) % Eos % (Auto) % Baso % (Auto) % Neut # (Auto) (1.40-6.50) K/uL Lymph # (Auto) (1.2-3.4) K/uL [place] # (Auto) (0.11-0.59) K/uL Eos # (Auto) (0-0.50) K/uL Baso # (Auto) (0-0.2) K/uL Immature Gran # (Auto) (0.01-0.20) K/uL Toxic Granulation APTT 37.9 H 34.7 H (21.0-31.0) Seconds PTT Ratio 1.4 1.3 Sodium 133 L (136-145) mmol/L Potassium 3.6 (3.5-5.1) mmol/L Chloride 98 (98-107) mmol/L Carbon Dioxide 29 (21-32) mmol/L Anion Gap 6 (3-11) BUN 8 (6-23) mg/dl Creatinine 0.98 (0.6-1.2) mg/dl Est Cr Clr Drug Dosing 68.6 ml/min Est GFR ( Amer) 74.7 ml/min Est GFR (Non-Af Amer) 64.5 ml/min BUN/Creatinine Ratio 8.2 L (10-20) Glucose 112 H (70-99(Fasting)) mg/dl Calcium 8.6 (8.5-10.1) mg/dl Phosphorus 2.4 L (2.5-4.9) mg/dl Magnesium 1.4 L (1.7-2.4) mg/dl Total Bilirubin 0.3 (0.2-1.0) mg/dl AST 7 L (13-39) U/L ALT 5 L (7-52) U/L Alkaline Phosphatase 64 (34-104) U/L Total Protein 6.4 (6.0-8.3) gm/dl Albumin 3.3 L (3.4-5.0) gm/dl Globulin 3.1 (2.5-4.0) gm/dl Albumin/Globulin Ratio 1.1 (0.9-2) 04/10/22 04/09/22 Range/Units 06:29 22:40 WBC 1.27 L (4.8-10.8) K/ul RBC 2.66 L (4.20-5.40) M/uL Hgb 7.8 L (12.0-16.0) g/dl Hct 22.0 L (37.0-47.0) % MCV 82.7 (80.0-100.0) fL MCH 29.3 (25.0-34.0) pg MCHC 35.5 (32.0-36.0) g/dL RDW Std Deviation 47.3 H (36.4-46.3) fL RDW Coeff of Madhav 15.5 H (11.5-14.5) % Plt Count 14 L* (130-400) K/uL Immature Gran % (Auto) 0.8 % Neut % (Auto) 14.9 % Lymph % (Auto) 70.1 % [place] % (Auto) 13.4 % Eos % (Auto) 0.8 % Baso % (Auto) 0.0 % Neut # (Auto) 0.19 L* (1.40-6.50) K/uL Lymph # (Auto) 0.89 L (1.2-3.4) K/uL [place] # (Auto) 0.17 (0.11-0.59) K/uL Eos # (Auto) 0.01 (0-0.50) K/uL Baso # (Auto) 0.00 (0-0.2) K/uL Immature Gran # (Auto) 0.01 (0.01-0.20) K/uL Toxic Granulation 1+ APTT 31.5 H (21.0-31.0) Seconds PTT Ratio 1.1 Sodium (136-145) mmol/L Potassium (3.5-5.1) mmol/L Chloride (98-107) mmol/L Carbon Dioxide (21-32) mmol/L Anion Gap (3-11) BUN (6-23) mg/dl Creatinine (0.6-1.2) mg/dl Est Cr Clr Drug Dosing ml/min Est GFR ( Amer) ml/min Est GFR (Non-Af Amer) ml/min BUN/Creatinine Ratio (10-20) Glucose (70-99(Fasting)) mg/dl Calcium (8.5-10.1) mg/dl Phosphorus (2.5-4.9) mg/dl Magnesium (1.7-2.4) mg/dl Total Bilirubin (0.2-1.0) mg/dl AST (13-39) U/L ALT (7-52) U/L Alkaline Phosphatase (34-104) U/L Total Protein (6.0-8.3) gm/dl Albumin (3.4-5.0) gm/dl Globulin (2.5-4.0) gm/dl Albumin/Globulin Ratio (0.9-2) Medications Administered Current Inpatient Medications Heparin Sodium (Porcine) (Heparin 100 Unit/Ml 5ml Flush) 5 ml FLUSH PRN PRN PRN Reason: Flush Stop: 05/08/22 18:22 Heparin Sodium/Dextrose (Heparin Sodium/Dextrose) 25,000 units in 500 mls @ 25 mls/hr IV .Q20H [facility]; Protocol Stop: 05/09/22 15:29 Last Titration: 04/10/22 15:54 Dose: 1,250 units/hr, 25 mls/hr Levothyroxine Sodium (Levothyroxine Sodium 88 Mcg Tablet) 88 mcg PO DAILYBB [facility] Stop: 05/09/22 06:29 Last Admin: 04/10/22 05:57 Dose: 88 mcg Magnesium Oxide (Magnesium Oxide 400 Mg Tab) 400 mg PO BID [facility] Stop: 05/10/22 08:59 Last Admin: 04/10/22 08:58 Dose: 400 mg Olanzapine (Olanzapine 10 Mg Tab) 10 mg PO QPM RAJESH Stop: 05/08/22 20:59 Last Admin: 04/09/22 20:39 Dose: 10 mg Pantoprazole Sodium (Pantoprazole 40 Mg Tab) 40 mg PO QPM [facility] Stop: 05/08/22 20:59 Last Admin: 04/09/22 20:39 Dose: 40 mg Prochlorperazine (Prochlorperazine Maleate 10 Mg Tab) 10 mg PO Q6H PRN PRN Reason: Nausea Stop: 05/08/22 13:25 Last Admin: 04/10/22 08:58 Dose: 10 mg
[2022-04-10] MEDS: HEPARIN SODIUM/DEXTROSE 25,000 UNITS/500 ML BAG IV SCH (18:13)
[2022-04-10] MEDS: PANTOprazole 40 MG TAB PO SCH (20:06)
[2022-04-10] MEDS: OLANZapine 10 MG TAB PO SCH (20:06)
[2022-04-10 23:39] LABS: Partial Thromboplastin Ratio 1.7
[2022-04-11 00:10] LABS: Partial Thromboplastin Time 46.2 Seconds (21.0-31.0)
[2022-04-11] MEDS: LEVOTHYROXINE SODIUM 88 MCG TABLET PO SCH (06:11)
[2022-04-11] MEDS: MAGNESIUM OXIDE 400 MG TAB PO SCH (07:30)
[2022-04-11 07:40] LABS: BUN Creatinine Ratio 6.8 (10-20); Calcium 9.3 mg/dl (8.5-10.1); Creatinine Clr Calc Pharmacy 65.3 ml/min; Est GFR (African American) 70.4 ml/min; Est GFR (Non-African American) 60.7 ml/min; Magnesium 1.7 mg/dl (1.7-2.4); Phosphorus 3.2 mg/dl (2.5-4.9); Potassium 3.6 mmol/L (3.5-5.1)
[2022-04-11 07:43] LABS: Hematocrit (blood only) 25.9 % (37.0-47.0); Mean Corpuscular Hemoglobin 28.8 pg (25.0-34.0); Mean Corpuscular Hgb Conc 34.7 g/dL (32.0-36.0); Platelet Count 26 K/uL (130-400); RDW Coefficient of Variation 15.5 % (11.5-14.5); RDW Standard Deviation 46.6 fL (36.4-46.3); Red Blood Count 3.12 M/uL (4.20-5.40); White Blood Count 2.63 K/ul (4.8-10.8)
[2022-04-11 07:49] LABS: Partial Thromboplastin Ratio 1.5; Partial Thromboplastin Time 42.2 Seconds (21.0-31.0)
[2022-04-11 07:51] LABS: ALC (manual) 1.74 K/uL (1.2-3.4); ANC (manual) 0.63 K/uL (1.4-6.5); Eosinophils # (manual) 0.05 K/uL (0-0.50); Eosinophils % (manual) 2 %; Large Granular Lymph # (manua 1.05 K/uL; Large Granular Lymph % (manual) 40 %; Lymphocytes # (manual) 0.68 K/uL (1.2-3.4); Lymphocytes % (manual) 26 %; Monocytes # (manual) 0.24 K/uL (0.11-0.59); Monocytes % (manual) 9 %; Neutrophils # (manual) 0.63 K/uL (1.40-6.50); Neutrophils % (manual) 24 %
--- NOTE | 2022-04-11 09:53 | Hospitalist Progress Note ---
Date of Service April 11, 2022 Assessment & Plan (1) Pancytopenia: (2) Thrombocytopenia: Plan: Possible related to current chemotherapy regimen with bleomycin, etoposide, cisplatin Pt was sent to the ED for abnormal lab Platelet 7, hgb 6.2 WBC 0.51 on admission Status post 1 unit PRBC and 1 unit platelet given on admission Goal to keep platelet count greater than 10, hemoglobin greater than 7.0 Hemoglobin today 9 improved from 8 and platelet 26 - improved from 14 yesterday Case discussed with oncology Dr. Montgomery - recommends that we can switch back to xarelto ad DC home - follow up in his office next week (3) Pulmonary embolism: Plan: Recent diagnosis of pulmonary embolism ~1 week ago She was started on Xarelto that was held due to low platelet Pt denies any abnormal bleeding case discussed with Oncology Dr. Montgomery that recommended to start low dose of IV heparin drip with no bolus since pt is very high risk for more clot - today will switch back to xarelto (as above) (4) Ovarian cancer: Plan: Follow up with outpatient Oncology Dr. Montgomery (5) Electrolyte abnormality: Plan: Possible related to vomiting Potassium 3.6 today Mag 1.7 today Replace and monitor K and Mag (6) Hypothyroidism: Plan: - Cont levothyroxine DVT PPx: teds, scds IV heparin -> switch back to xarelto CODE: Full code Admission and Anticipated Discharge Date Admission Date: April 08, 2022 Subjective Patient was seen and examined for follow-up of pancytopenia Sitting up in bed in no acute distress resting comfortable She received 1 unit PRBC and 1 unit of platelets on admission - now Hgb and plt stable/ improved Denies any chest pain, palpitation, dizziness, shortness of breath or GI bleeding Oncology Dr. Montgomery updated - recommends that pt can be switched back to xarelto and DC home - follow up w/ Dr. Montgomery next week. Review of Systems Review of Systems: All systems reviewed & are unremarkable except as noted in Subjective Physical Exam Physical Exam: General: awake, alert, no apparent distress Head: Normocephalic, atraumatic ENT: PERRL, EOMI, no pharyngeal exudate Chest: Clear to auscultation Cardiac: Regular rate and rhythm, no murmur, normal peripheral pulses Abdominal: NABS x 4 quadrants, soft, nondistended, nontender to palpation Extremities: Normal inspection, no peripheral edema or erythema Psych: Normal mood and affect Neuro: AAO x 3, speech fluent, no facial asymmetry, moves extremities Results & Data Results & Data ([facility]) Vital Signs (Past 12 Hours) Vital Signs Temp Pulse Pulse Resp BP BP Pulse Ox 04/11/22 09:00 84 04/11/22 07:40 36.5 C 86 18 101/65 92 04/11/22 03:00 36.7 C 92 H 18 126/77 93 04/11/22 00:25 95 H 04/10/22 23:26 36.7 C 89 18 107/68 91 O2 Del Method 04/11/22 09:00 04/11/22 07:40 Room Air 04/11/22 03:00 Room Air 04/11/22 00:25 04/10/22 23:26 Room Air Laboratory Results 04/11/22 04/11/22 04/11/22 Range/Units 07:06 07:06 07:06 WBC 2.63 L (4.8-10.8) K/ul RBC 3.12 L (4.20-5.40) M/uL Hgb 9.0 L (12.0-16.0) g/dl Hct 25.9 L (37.0-47.0) % MCV 83.0 (80.0-100.0) fL MCH 28.8 (25.0-34.0) pg MCHC 34.7 (32.0-36.0) g/dL RDW Std Deviation 46.6 H (36.4-46.3) fL RDW Coeff of Madhav 15.5 H (11.5-14.5) % Plt Count 26 L* D (130-400) K/uL Neutrophils % (Manual) 24 % Lymphocytes % (Manual) 26 % Monocytes % (Manual) 9 % Eosinophils % (Manual) 2 % Neutrophils # (Manual) 0.63 L (1.40-6.50) K/uL Total Absolute Neuts 0.63 L* (1.4-6.5) K/uL Lymphocytes # (Manual) 0.68 L (1.2-3.4) K/uL Total Abs Lymphocytes 1.74 (1.2-3.4) K/uL Monocytes # (Manual) 0.24 (0.11-0.59) K/uL Eosinophils # (Manual) 0.05 (0-0.50) K/uL Large Granular Lymphs 40 % # Lrg Granular Lymphs 1.05 K/uL APTT 42.2 H (21.0-31.0) Seconds PTT Ratio 1.5 Sodium 136 (136-145) mmol/L Potassium 3.6 (3.5-5.1) mmol/L Chloride 98 (98-107) mmol/L Carbon Dioxide 30 (21-32) mmol/L Anion Gap 8 (3-11) BUN 7 (6-23) mg/dl Creatinine 1.03 (0.6-1.2) mg/dl Est Cr Clr Drug Dosing 65.3 ml/min Est GFR ( Amer) 70.4 ml/min Est GFR (Non-Af Amer) 60.7 ml/min BUN/Creatinine Ratio 6.8 L (10-20) Glucose 114 H (70-99(Fasting)) mg/dl Calcium 9.3 (8.5-10.1) mg/dl Phosphorus 3.2 (2.5-4.9) mg/dl Magnesium 1.7 (1.7-2.4) mg/dl 04/10/22 04/10/22 Range/Units 22:22 14:43 WBC (4.8-10.8) K/ul RBC (4.20-5.40) M/uL Hgb (12.0-16.0) g/dl Hct (37.0-47.0) % MCV (80.0-100.0) fL MCH (25.0-34.0) pg MCHC (32.0-36.0) g/dL RDW Std Deviation (36.4-46.3) fL RDW Coeff of Madhav (11.5-14.5) % Plt Count (130-400) K/uL Neutrophils % (Manual) % Lymphocytes % (Manual) % Monocytes % (Manual) % Eosinophils % (Manual) % Neutrophils # (Manual) (1.40-6.50) K/uL Total Absolute Neuts (1.4-6.5) K/uL Lymphocytes # (Manual) (1.2-3.4) K/uL Total Abs Lymphocytes (1.2-3.4) K/uL Monocytes # (Manual) (0.11-0.59) K/uL Eosinophils # (Manual) (0-0.50) K/uL Large Granular Lymphs % # Lrg Granular Lymphs K/uL APTT 46.2 H* 37.9 H (21.0-31.0) Seconds PTT Ratio 1.7 1.4 Sodium (136-145) mmol/L Potassium (3.5-5.1) mmol/L Chloride (98-107) mmol/L Carbon Dioxide (21-32) mmol/L Anion Gap (3-11) BUN (6-23) mg/dl Creatinine (0.6-1.2) mg/dl Est Cr Clr Drug Dosing ml/min Est GFR ( Amer) ml/min Est GFR (Non-Af Amer) ml/min BUN/Creatinine Ratio (10-20) Glucose (70-99(Fasting)) mg/dl Calcium (8.5-10.1) mg/dl Phosphorus (2.5-4.9) mg/dl Magnesium (1.7-2.4) mg/dl Medications Administered Current Inpatient Medications Heparin Sodium (Porcine) (Heparin 100 Unit/Ml 5ml Flush) 5 ml FLUSH PRN PRN PRN Reason: Flush Stop: 05/08/22 18:22 Heparin Sodium/Dextrose (Heparin Sodium/Dextrose) 25,000 units in 500 mls @ 26 mls/hr IV .[id number] [facility]; Protocol Stop: 05/09/22 15:29 Last Titration: 04/11/22 09:01 Dose: 1,300 units/hr, 26 mls/hr Levothyroxine Sodium (Levothyroxine Sodium 88 Mcg Tablet) 88 mcg PO DAILYBB [facility] Stop: 05/09/22 06:29 Last Admin: 04/11/22 06:11 Dose: 88 mcg Magnesium Oxide (Magnesium Oxide 400 Mg Tab) 400 mg PO BID [facility] Stop: 05/10/22 08:59 Last Admin: 04/11/22 07:30 Dose: 400 mg Olanzapine (Olanzapine 10 Mg Tab) 10 mg PO QPM [facility]JESH Stop: 05/08/22 20:59 Last Admin: 04/10/22 20:06 Dose: 10 mg Pantoprazole Sodium (Pantoprazole 40 Mg Tab) 40 mg PO QPM [facility] Stop: 05/08/22 20:59 Last Admin: 04/10/22 20:06 Dose: 40 mg Prochlorperazine (Prochlorperazine Maleate 10 Mg Tab) 10 mg PO Q6H PRN PRN Reason: Nausea Stop: 05/08/22 13:25 Last Admin: 04/10/22 20:39 Dose: 10 mg
[2022-04-11] MEDS: HEPARIN SODIUM/DEXTROSE 25,000 UNITS/500 ML BAG IV SCH (14:37)
--- NOTE | 2022-04-11 15:46 | Discharge Summary ---
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 In August 2021 had recurrence with metastatic disease involving the abdomen, where a intra- abdominal mass measuring 18 cm including few peritoneal nodules were removed. Staging is cT1, cN0, cM0. Has underwent BILLY,BSO and lymph lewis biopsy in 11/2005 at [facility] and s/p resection of intra-abdominal mass on 11/27/[address] Gan. Current chemotherapy includes BEP: Bleomycin, etoposide, cisplatin every 21 days. She follows routinely with Dr. Gary Montgomery as an outpatient. Today she was due to have her last round of this chemotherapy, however after bloodwork evaluation in cancer center, was referred to the ER because of her counts being too low. Felicia most recently had chemotherapy on 03/29/22. Since her last session, she has had persistent nausea and vomiting, fatigue and weakness. She reports some mild knee pain. She has had a small cough for the past week, thinks this is allergies however. Pt denies any recent fever, chills or sweats. She was able to take her morning medications including xarelto 15 mg BID since pulmonary embolism diagnosis last week. Pt was referred to the ER due to worsening blood work and admission for transfusion due to pancytopenia. Reports that she quit smoking 3 years ago, and has not drank any alcohol since starting chemotherapy. Admission Exam Per Admitting Provider General: awake, alert, no apparent distress, + thin, + alopecia Head: Normocephalic, atraumatic ENT: PERRL, EOMI, no pharyngeal exudate, mucous membranes moist Chest: Clear to auscultation, + Mediport accessed in the right chest wall, on room air, no adventitious breath sounds Cardiac: Regular rate and rhythm, no murmur, no JVD, normal peripheral pulses, good capillary refill Abdominal: NABS x 4 quadrants, soft, nondistended, nontender to palpation, no rebound or guarding Extremities: Normal inspection, no peripheral edema or erythema, calfs nontender to palpation Psych: Normal mood and affect Neuro: AAO x 3, strength intact bilaterally and rated 5/5, no motor deficits, speech is clear, no peripheral sensory deficits Principal Diagnosis Pancytopenia, secondary to chemotherapy, ovarian cancer Pulmonary embolism Discharge Exam General: awake, alert, no apparent distress Head: Normocephalic, atraumatic ENT: PERRL, EOMI, no pharyngeal exudate Chest: Clear to auscultation Cardiac: Regular rate and rhythm, no murmur, normal peripheral pulses Abdominal: NABS x 4 quadrants, soft, nondistended, nontender to palpation Extremities: Normal inspection, no peripheral edema or erythema Psych: Normal mood and affect Neuro: AAO x 3, speech fluent, no facial asymmetry, moves extremities Discharge Data Allergies Allergy/AdvReac Type Severity Reaction Status Date / Time No Known Allergies Allergy Mild Verified 03/30/22 20:32 Consultations 04/08/22 12:46 ED Decision to Admit Stat Hospital Course (1) Pancytopenia: (2) Thrombocytopenia: Possible related to current chemotherapy regimen with bleomycin, etoposide, cisplatin Pt was sent to the ED for abnormal lab Platelet 7, hgb 6.2 WBC 0.51 on admission Status post 1 unit PRBC and 1 unit platelet given on admission Goal to keep platelet count greater than 10, hemoglobin greater than 7.0 Hemoglobin today 9 improved from 8 and platelet 26 - improved from 14 yesterday Case discussed with oncology Dr. Montgomery - recommends that we can switch back to xarelto ad DC home - follow up in his office next week (3) Pulmonary embolism: Recent diagnosis of pulmonary embolism ~1 week ago She was started on Xarelto that was held due to low platelet Pt denies any abnormal bleeding case discussed with Oncology Dr. Montgomery that recommended to start low dose of IV heparin drip with no bolus since pt is very high risk for more clot - today will switch back to xarelto (as above) (4) Ovarian cancer: Follow up with outpatient Oncology Dr. Montgomery (5) Electrolyte abnormality: Possible related to vomiting Potassium 3.6 today Mag 1.7 today Replace and monitor K and Mag (6) Hypothyroidism: - Cont levothyroxine Total Time Total Time Spent Total Time Spent (In Minutes): 40 Discharge Plan Discharge Items Patient Disposition: Home - Self-Care Reason For Visit: PANCYTOPENIA, OVARIAN CANCER Discharge Diagnosis: Pancytopenia, secondary to chemotherapy, ovarian cancer Pulmonary embolism Activity: Per Instructions section Non-emergency contact: Primary Care Provider and Oncologist Call non-emergency contact if: you have any medication questions Follow-up/Referrals: Karissa Iglesias DO [Primary Care Provider] - Diet: Heart Healthy Addtl Attending Provider Instructions: Continue taking your Xarelto, as prescribed. Follow-up with Dr. Montgomery (hematology/oncology) next week in their clinic. Pending Studies at Discharge: No Stand-Alone Forms: My [facility] Ning, Smoking Cessation Medications and DC Order Prescriptions: Continued ondansetron HCl 8 mg tablet 8 mg PO Q8H PRN (Reason: Nausea) olanzapine 5 mg tablet 10 mg PO QPM omeprazole 20 mg capsule,delayed release(DR/EC) 20 mg PO QPM levothyroxine 88 mcg tablet 88 mcg PO DAILYBB prochlorperazine maleate 10 mg tablet 10 mg PO Q6H PRN (Reason: Nausea) sennosides [Vegetable Laxative] 8.6 mg tablet 8.6 mg PO QAM PRN (Reason: Constipation) bleomycin 15 unit Recon Soln 0 unit IV .UD Rx Instructions: 03/30/22 : EVERY FRIDAY X 2, DIRECTED BY CANCER CENTER Xarelto 15 mg tablet 15 mg PO BID 21 Days Qty: 42 0RF Rx Instructions: must administer with a meal/food Xarelto 20 mg tablet 20 mg PO DAILY Qty: 60 0RF Rx Instructions: must administer with evening meal. Start after the 21 day loading dose is complete dexamethasone 4 mg tablet 4 mg PO BID Rx Instructions: tAKE FOR 5 DAYS STARTING DAY 2 OF CHEMO TREATMENT Discharge Orders: Discharge Order (Routine); Ordered 04/11/22 Ordered By: Vicente Lucas Admission Data Admit Date/Time: 04/08/22 13:12 Attending Provider: Vicente Lucas Admit Provider: Little Schmidt Primary Care Provider: Karissa Iglesias Other Providers: Nena Nielsen Wilkerson Other Interventions: Discharge Summary Assessment (RN) Last Done: 04/11/22 16:08
[2022-04-11 16:25] LABS: Partial Thromboplastin Ratio 1.5; Partial Thromboplastin Time 39.9 Seconds (21.0-31.0)
== END 2022-04-11 16:42 | disposition home or self-care (01) | DRG 808 ==
LOC: ED 09:20 → SUATTDRO 13:12 → 2S 13:12